=== PATIENT | female | born 1940 | race Caucasian/White ===

== ENCOUNTER 2016-09-19 09:12 | Inpatient (IN) ==
[2016-09-19] MEDS ORDERED: 0.9 % Sodium Chloride 1,000 ML IVC ONE (09:35)
[2016-09-19] MEDS ORDERED: Ondansetron 4 MG/2 ML VIAL IVP ONE (09:35)
--- NOTE | 2016-09-19 09:38 | Emergency Department Note ---
Disposition Clinical Impression: Cellulitis in diabetic foot Sepsis Qualifiers: Sepsis type: sepsis due to unspecified organism Qualified Code(s): A41.9 - Sepsis, unspecified organism Subcutaneous air Qualifiers: Encounter type: initial encounter Qualified Code(s): T79.7XXA - Traumatic subcutaneous emphysema, initial encounter Disposition: Admitted As Inpatient Condition: Serious Time of Disposition: 11:28 Syncope HPI - General Chief Complaint: ED Fall Stated Complaint: dizzy,fall Source: patient, family Limitations: no limitations Nursing Notes Reviewed: Yes Vital Signs Reviewed: Yes - History of Present Illness HPI Narrative: 76-year-old female complains of dizziness and falling over the past 3 days. This is an acute change patient has a history of independent living at [facility]. Patient usually gets around on her own just fine with a walker. Patient currently unable to support herself with a walker and has fallen 3 times over the past 30 hours. Patient fell and hit her face on the second fall. Patient family reports the patient was down on the ground before she got help for about 2 hours at 4 AM this morning. They also report the patient has a newly found diabetic ulcer on the heel of the left foot. Patient complains of pain in the left lower extremity in her foot. Patient has history of diabetes and hypertension. - Related Data Home Medications Medication Instructions Recorded Confirmed Acetaminophen [Tylenol Arthritis] 650 mg PO Q6H PRN 09/19/16 09/19/16 Aspirin 81 mg PO DAILY 09/19/16 09/19/16 Metformin HCl [Glucophage] 1,000 mg PO BID 09/19/16 09/19/16 Oxybutynin Chloride [Ditropan Xl] 5 mg PO DAILY 09/19/16 09/19/16 Pioglitazone HCl [Actos] 45 mg PO DAILY 09/19/16 09/19/16 Simvastatin [Zocor] 40 mg PO HS 09/19/16 09/19/16 Allergies Allergy/AdvReac Type Severity Reaction Status Date / Time Penicillins AdvReac Itching Verified 09/19/16 11:57 All systems ED: reviewed and negative except as stated. Constitutional: Reports: weakness. Denies: fever, chills Eyes: Denies: eye pain, eye discharge, vision change ENT ED: Denies: ear pain, throat pain, dental pain, congestion, dysphagia Cardiovascular: Reports: dyspnea on exertion. Denies: chest pain, palpitations , syncope Respiratory: Denies: cough, dyspnea, wheezes Gastrointestinal: Reports: nausea. Denies: abdominal pain, vomiting Genitourinary: Denies: urgency, dysuria Musculoskeletal: Denies: back pain, neck pain Integumentary: Reports: lesions (Single ulcer on the heel of the left foot). Denies: rash, abrasion Neurological: Reports: weakness, confusion. Denies: headache Psychiatric: Denies: anxiety, depression Endocrine: Denies: fatigue, heat or cold intolerance Past Medical History - Past Medical History Attestation: Yes The following information was validated with the patient. Medical history: Reports: diabetes, hypertension Psychiatric history: Reports: no psych history - Social History Smoking Status: Never smoker Smokeless Tobacco Status: No Alcohol use: Reports: none Drug use: Reports: none Physical Exam Vital Signs Temperature 98.3 F 09/19/16 09:16 Pulse Rate 108 09/19/16 09:16 Respiratory Rate 20 09/19/16 09:16 Blood Pressure 124/82 09/19/16 09:16 O2 Sat by Pulse Oximetry 96 09/19/16 09:16 Temperature 98.3 F 09/19/16 09:16 Pulse Rate 108 09/19/16 09:16 Respiratory Rate 20 09/19/16 09:16 Blood Pressure 124/82 09/19/16 09:16 O2 Sat by Pulse Oximetry 96 09/19/16 09:16 Oxygen Delivery Oxygen Delivery Room Air -General Appearance: Patient is a 76 -year-old female who is alert and oriented 3 and in no acute distress. Patient appears comfortable -Neurological exam: Cranial nerves II-12 intact, no focal deficits observed, strength equal 5/5 bilaterally in upper and lower extremities. Negative loss of sensation - Head Head exam: atraumatic, normocephalic, normal inspection - Eye Eye exam: Present: normal appearance, PERRL, EOMI, negative for scleral icterus negative for conjunctival pallor - ENT ENT exam: normal exam, normal oropharynx, mucous membranes moist - Neck Neck exam: Present: normal inspection, full ROM, trachea midline, negative JVD - Chest Chest inspection: Present: Patient has bilateral equal rise and fall of chest wall. Non-tender to palpation. - Respiratory Respiratory exam: Clear to auscultation bilaterally without wheezes rales or rhonchi Cardiovascular Cardiovascular exam: Present: regular rate, normal rhythm, normal heart sounds, without murmurs rubs or gallops. - Abdominal Exam Abdominal exam: Present: soft, nondistended, Non-Tender light and deep palpation in all quadrants. Bowel sounds normoactive throughout all 4 quadrants. Negative for hyper or hyperresonance. - Extremities Exam Extremities exam: Recent remainder discoid ulceration base of heel nonpurulent. Proximal extension of erythema lower half of left lower extremity. Pedal pulses intact and equal bilaterally upper and lower extremities - Back Exam Back exam: Present: normal inspection, full ROM. - Psychiatric Psychiatric exam: Present: normal affect, normal mood - Skin Skin exam: Present: Foot ulceration left lower extremity. Previously described - General Limitations: no limitations General appearance: alert, in no apparent distress Course Course Narrative: Patient seen and examined. Patient currently comfortable and does not appear toxic. She has GCS of 15. Imaging and labs ordered - Reevaluation(s) Reevaluation #1: Patient still comfortable patient states she is not in any pain. Time: 10:00 Reevaluation #2: Patient still comfortable doing well. Discussed patient results and that she will be going to surgery today for incision and debridement of her left lower extremity. Patient understands and agrees to treatment plan. Patient's sons were also previous on the plan at the wishes of the patient. They also understand and agreed to treatment plan. Time: 11:35 - Consultations Consultation #1: Dr. Adler sputum patient's condition. Recommends patient be admitted to the hospital and he plans to have patient go to surgery today. Time: 11:17 Consultation #2: Dr. Hemphill has accepted for admission. Time: 11:28 Vital Signs Temperature 98.3 F 09/19/16 09:16 Pulse Rate 108 09/19/16 09:16 Respiratory Rate 20 09/19/16 09:16 Blood Pressure 124/82 09/19/16 09:16 O2 Sat by Pulse Oximetry 96 09/19/16 09:16 Temperature 98.7 F 09/19/16 10:01 Pulse Rate 82 09/19/16 11:24 Respiratory Rate 18 09/19/16 12:43 Blood Pressure 114/93 09/19/16 12:43 O2 Sat by Pulse Oximetry 93 L 09/19/16 11:24 Oxygen Delivery Oxygen Delivery Room Air Syncope - [facility] Narrative Medical decision making narrative: Ms. Mendoza is a 76 -year-old female complains of dizziness and also the past 3 days with increased confusion and weakness. Patient has a new diabetic foot ulcer on the left heel that has not been treated. Today at presentation patient left lower extremity just below mid lower leg is erythematous concerning for Cellulitis of the left lower extremity possible sepsis. Patient is afebrile but has a tachycardia of 108 and a sinus tach. Respirations 20. X-ray the foot shows gas below the subcutaneous tissues. Patient's WBC shows 15.9. Patient has sepsis now and sepsis protocol been initiated. Patient has ESR greater than 130. Dr. Adler podiatry was consulted and recommends patient be admitted to the hospital and from there have hospitalist consult podiatry with the intention of taking patient to surgery today for I&D. Patient was started on meropenem and vancomycin. IV fluid boluses have been initiated to reach her minimum of 3333 mL. cultures the wound, and blood cultures drawn. MRI of the left lower extremity has been ordered. Dr. Hemphill has accepted patient for admission. - Lab Data Lab results reviewed: Yes I reviewed the patient's lab results. Lab results narrative: Short CBC 09/19/16 Range/Units 10:21 WBC 15.9 H (4.3-11.1) K/mcL Hgb 10.7 L (11.5-15.4) g/dL Hct 32.6 L (35.3-44.9) % Plt Count 259 (140-400) K/mcL Neutrophils # 13.4 H (1.6-8.9) K/mcL BMP 09/19/16 Range/Units 10:21 Sodium 135 L (136-145) mEq/L Potassium 3.7 (3.5-4.5) mEq/L Chloride 98 (98-109) mEq/L Carbon Dioxide 24 (19-29) mEq/L BUN 24 H (7-20) mg/dL Creatinine 0.81 (0.57-1.11) mg/dL Glucose 300 H (70-99) mg/dL Calcium 9.1 (8.6-10.8) mg/dL Cardiac Enzymes 09/19/16 Range/Units 10:21 Troponin I 0.02 (0-0.03) ng/mL Result diagrams: 09/19/16 10:21 09/19/16 10:21 Lab Results 09/19/16 09/19/16 09/19/16 Range/Units 09:25 10:21 10:21 WBC 15.9 H (4.3-11.1) K/mcL RBC 3.54 L (3.82-4.97) M/mcL Hgb 10.7 L (11.5-15.4) g/dL Hct 32.6 L (35.3-44.9) % MCV 92.1 (83.0-100.0) fL MCH 30.2 (28.0-33.3) pg MCHC 32.8 (31.6-35.5) g/dL RDW 17.6 H (11.5-14.5) % Plt Count 259 (140-400) K/mcL MPV 9.3 L (9.4-12.4) fL Immature Gran % 3.7 (0-4) % Seg Neutrophils % 84.3 % Lymphocytes % 3.1 % Monocytes % 8.8 % Eosinophils % 0.0 % Basophils % 0.1 % Neutrophils # 13.4 H (1.6-8.9) K/mcL Lymphocytes # 0.5 L (0.6-4.6) K/mcL Monocytes # 1.4 H (0.0-1.3) K/mcL Eosinophils # 0.0 (0.0-0.6) K/mcL Basophils # 0.0 (0.0-0.2) K/mcL Nucleated RBCs/100 WBC 0.1 H (0) /100 WBC ESR (0-15) mm/hr PT (9.4-12.1) Seconds INR APTT (26.0-36.0) Seconds Sodium 135 L (136-145) mEq/L Potassium 3.7 (3.5-4.5) mEq/L Chloride 98 (98-109) mEq/L Carbon Dioxide 24 (19-29) mEq/L BUN 24 H (7-20) mg/dL Creatinine 0.81 (0.57-1.11) mg/dL Est GFR ( Amer) > 60 (> 60) Est GFR (Non-Af Amer) > 60 (> 60) BUN/Creatinine Ratio 30 H (6-26) Glucose 300 H (70-99) mg/dL POC Glucose 277 H (58-89) Calculated Osmolality 295 (280-300) Lactic Acid (0.5-2.2) mmol/L Calcium 9.1 (8.6-10.8) mg/dL Phosphorus (2.3-4.7) mg/dL Magnesium (1.6-2.6) mg/dL Total Bilirubin (0.2-1.2) mg/dL Direct Bilirubin (0.0-0.5) mg/dL Indirect Bilirubin (0.0-1.2) mg/dL AST (5-34) Units/L ALT (0-55) Units/L Alkaline Phosphatase (38-126) Units/L Creatine Kinase (29-168) Units/L Troponin I (0-0.03) ng/mL Serum Total Protein (6.0-8.3) g/dL Albumin (3.5-5.0) g/dL Globulin (2.4-3.5) g/dL Albumin/Globulin Ratio (1.1-2.2) Urine Color (Yellow) Urine Clarity (Clear) Urine pH (5.0-8.0) pH Units Ur Specific [place] (1.010-1.025) Urine Protein (Neg-Trace) mg/dL Urine Glucose (UA) (Normal) mg/dL Urine Ketones (Negative) mg/dL Urine Blood (Negative) Urine Nitrite (Negative) Urine Bilirubin (Negative) Urine Urobilinogen (Normal) mg/dL Ur Leukocyte Esterase (Negative) Urine Microscopic RBC (0-3) per hpf Urine Microscopic WBC (0-3) per hpf Ur Squamous Epith Cells (None-Few) per lpf Ur Transition Epith Cell (None-Few) per hpf Ur Renal Epithelial Cell (None-Few) per hpf Urine Bacteria (None-Few) per hpf Hyaline Casts Urine Yeast 09/19/16 09/19/16 09/19/16 Range/Units 10:21 10:21 10:21 WBC (4.3-11.1) K/mcL RBC (3.82-4.97) M/mcL Hgb (11.5-15.4) g/dL Hct (35.3-44.9) % MCV (83.0-100.0) fL MCH (28.0-33.3) pg MCHC (31.6-35.5) g/dL RDW (11.5-14.5) % Plt Count (140-400) K/mcL MPV (9.4-12.4) fL Immature Gran % (0-4) % Seg Neutrophils % % Lymphocytes % % Monocytes % % Eosinophils % % Basophils % % Neutrophils # (1.6-8.9) K/mcL Lymphocytes # (0.6-4.6) K/mcL Monocytes # (0.0-1.3) K/mcL Eosinophils # (0.0-0.6) K/mcL Basophils # (0.0-0.2) K/mcL Nucleated RBCs/100 WBC (0) /100 WBC ESR >= 130 H (0-15) mm/hr PT (9.4-12.1) Seconds INR APTT (26.0-36.0) Seconds Sodium (136-145) mEq/L Potassium (3.5-4.5) mEq/L Chloride (98-109) mEq/L Carbon Dioxide (19-29) mEq/L BUN (7-20) mg/dL Creatinine (0.57-1.11) mg/dL Est GFR ( Amer) (> 60) Est GFR (Non-Af Amer) (> 60) BUN/Creatinine Ratio (6-26) Glucose (70-99) mg/dL POC Glucose (58-89) Calculated Osmolality (280-300) Lactic Acid (0.5-2.2) mmol/L Calcium (8.6-10.8) mg/dL Phosphorus (2.3-4.7) mg/dL Magnesium (1.6-2.6) mg/dL Total Bilirubin (0.2-1.2) mg/dL Direct Bilirubin (0.0-0.5) mg/dL Indirect Bilirubin (0.0-1.2) mg/dL AST (5-34) Units/L ALT (0-55) Units/L Alkaline Phosphatase (38-126) Units/L Creatine Kinase 217 H (29-168) Units/L Troponin I 0.02 (0-0.03) ng/mL Serum Total Protein (6.0-8.3) g/dL Albumin (3.5-5.0) g/dL Globulin (2.4-3.5) g/dL Albumin/Globulin Ratio (1.1-2.2) Urine Color (Yellow) Urine Clarity (Clear) Urine pH (5.0-8.0) pH Units Ur Specific [place] (1.010-1.025) Urine Protein (Neg-Trace) mg/dL Urine Glucose (UA) (Normal) mg/dL Urine Ketones (Negative) mg/dL Urine Blood (Negative) Urine Nitrite (Negative) Urine Bilirubin (Negative) Urine Urobilinogen (Normal) mg/dL Ur Leukocyte Esterase (Negative) Urine Microscopic RBC (0-3) per hpf Urine Microscopic WBC (0-3) per hpf Ur Squamous Epith Cells (None-Few) per lpf Ur Transition Epith Cell (None-Few) per hpf Ur Renal Epithelial Cell (None-Few) per hpf Urine Bacteria (None-Few) per hpf Hyaline Casts Urine Yeast 09/19/16 09/19/16 09/19/16 Range/Units 10:59 11:43 11:43 WBC (4.3-11.1) K/mcL RBC (3.82-4.97) M/mcL Hgb (11.5-15.4) g/dL Hct (35.3-44.9) % MCV (83.0-100.0) fL MCH (28.0-33.3) pg MCHC (31.6-35.5) g/dL RDW (11.5-14.5) % Plt Count (140-400) K/mcL MPV (9.4-12.4) fL Immature Gran % (0-4) % Seg Neutrophils % % Lymphocytes % % Monocytes % % Eosinophils % % Basophils % % Neutrophils # (1.6-8.9) K/mcL Lymphocytes # (0.6-4.6) K/mcL Monocytes # (0.0-1.3) K/mcL Eosinophils # (0.0-0.6) K/mcL Basophils # (0.0-0.2) K/mcL Nucleated RBCs/100 WBC (0) /100 WBC ESR (0-15) mm/hr PT 14.0 H (9.4-12.1) Seconds INR 1.3 APTT 27.3 (26.0-36.0) Seconds Sodium (136-145) mEq/L Potassium (3.5-4.5) mEq/L Chloride (98-109) mEq/L Carbon Dioxide (19-29) mEq/L BUN (7-20) mg/dL Creatinine (0.57-1.11) mg/dL Est GFR ( Amer) (> 60) Est GFR (Non-Af Amer) (> 60) BUN/Creatinine Ratio (6-26) Glucose (70-99) mg/dL POC Glucose (58-89) Calculated Osmolality (280-300) Lactic Acid (0.5-2.2) mmol/L Calcium (8.6-10.8) mg/dL Phosphorus 2.1 L (2.3-4.7) mg/dL Magnesium 1.5 L (1.6-2.6) mg/dL Total Bilirubin 0.9 (0.2-1.2) mg/dL Direct Bilirubin 0.5 (0.0-0.5) mg/dL Indirect Bilirubin 0.4 (0.0-1.2) mg/dL AST 21 (5-34) Units/L ALT 16 (0-55) Units/L Alkaline Phosphatase 78 (38-126) Units/L Creatine Kinase (29-168) Units/L Troponin I (0-0.03) ng/mL Serum Total Protein 6.5 (6.0-8.3) g/dL Albumin 2.4 L (3.5-5.0) g/dL Globulin 4.1 H (2.4-3.5) g/dL Albumin/Globulin Ratio 0.6 L (1.1-2.2) Urine Color Yellow (Yellow) Urine Clarity Turbid A (Clear) Urine pH 6.0 (5.0-8.0) pH Units Ur Specific [place] 1.018 (1.010-1.025) Urine Protein 100 H (Neg-Trace) mg/dL Urine Glucose (UA) 500 H (Normal) mg/dL Urine Ketones Negative (Negative) mg/dL Urine Blood Moderate H (Negative) Urine Nitrite Positive A (Negative) Urine Bilirubin Negative (Negative) Urine Urobilinogen Normal (Normal) mg/dL Ur Leukocyte Esterase Large H (Negative) Urine Microscopic RBC 3-5 H (0-3) per hpf Urine Microscopic WBC TNTC H (0-3) per hpf Ur Squamous Epith Cells Many H (None-Few) per lpf Ur Transition Epith Cell Few (None-Few) per hpf Ur Renal Epithelial Cell Few (None-Few) per hpf Urine Bacteria Many H (None-Few) per hpf Hyaline Casts Test Not Performed Urine Yeast Test Not Performed 09/19/16 Range/Units 11:43 WBC (4.3-11.1) K/mcL RBC (3.82-4.97) M/mcL Hgb (11.5-15.4) g/dL Hct (35.3-44.9) % MCV (83.0-100.0) fL MCH (28.0-33.3) pg MCHC (31.6-35.5) g/dL RDW (11.5-14.5) % Plt Count (140-400) K/mcL MPV (9.4-12.4) fL Immature Gran % (0-4) % Seg Neutrophils % % Lymphocytes % % Monocytes % % Eosinophils % % Basophils % % Neutrophils # (1.6-8.9) K/mcL Lymphocytes # (0.6-4.6) K/mcL Monocytes # (0.0-1.3) K/mcL Eosinophils # (0.0-0.6) K/mcL Basophils # (0.0-0.2) K/mcL Nucleated RBCs/100 WBC (0) /100 WBC ESR (0-15) mm/hr PT (9.4-12.1) Seconds INR APTT (26.0-36.0) Seconds Sodium (136-145) mEq/L Potassium (3.5-4.5) mEq/L Chloride (98-109) mEq/L Carbon Dioxide (19-29) mEq/L BUN (7-20) mg/dL Creatinine (0.57-1.11) mg/dL Est GFR ( Amer) (> 60) Est GFR (Non-Af Amer) (> 60) BUN/Creatinine Ratio (6-26) Glucose (70-99) mg/dL POC Glucose (58-89) Calculated Osmolality (280-300) Lactic Acid 2.4 H (0.5-2.2) mmol/L Calcium (8.6-10.8) mg/dL Phosphorus (2.3-4.7) mg/dL Magnesium (1.6-2.6) mg/dL Total Bilirubin (0.2-1.2) mg/dL Direct Bilirubin (0.0-0.5) mg/dL Indirect Bilirubin (0.0-1.2) mg/dL AST (5-34) Units/L ALT (0-55) Units/L Alkaline Phosphatase (38-126) Units/L Creatine Kinase (29-168) Units/L Troponin I (0-0.03) ng/mL Serum Total Protein (6.0-8.3) g/dL Albumin (3.5-5.0) g/dL Globulin (2.4-3.5) g/dL Albumin/Globulin Ratio (1.1-2.2) Urine Color (Yellow) Urine Clarity (Clear) Urine pH (5.0-8.0) pH Units Ur Specific [place] (1.010-1.025) Urine Protein (Neg-Trace) mg/dL Urine Glucose (UA) (Normal) mg/dL Urine Ketones (Negative) mg/dL Urine Blood (Negative) Urine Nitrite (Negative) Urine Bilirubin (Negative) Urine Urobilinogen (Normal) mg/dL Ur Leukocyte Esterase (Negative) Urine Microscopic RBC (0-3) per hpf Urine Microscopic WBC (0-3) per hpf Ur Squamous Epith Cells (None-Few) per lpf Ur Transition Epith Cell (None-Few) per hpf Ur Renal Epithelial Cell (None-Few) per hpf Urine Bacteria (None-Few) per hpf Hyaline Casts Urine Yeast - Radiology Data Radiology results reviewed: Yes I reviewed the patient's radiology results. Chest X-Ray 09/19/16 09:35 IMPRESSION: Cardiomegaly, increased. [id number] pulmonary vascular congestion, increased. D/ / Felix Schaeffer MD / Felix Schaeffer MD Interpreting Provider: Felix Schaeffer MD Ankle X-Ray 09/19/16 09:50 IMPRESSION: Subcutaneous gas plantar to the calcaneus. No evidence of osseous erosive/ destructive change or periostitis. D/ / Juan Will MD / Juan Will MD Interpreting Provider: Juan iWll MD Chest X-Ray 09/19/16 09:35 IMPRESSION: Cardiomegaly, increased. [id number] pulmonary vascular congestion, increased. D/ / Felix Schaeffer MD / Felix Schaeffer MD Interpreting Provider: Felix Schaeffer MD Head CT 09/19/16 09:35 IMPRESSION: No acute intracranial abnormality. D/ / Kahlil Gross MD / Kahlil Gross MD Interpreting Provider: Kahlil Gross MD Ankle X-Ray 09/19/16 09:50 IMPRESSION: Subcutaneous gas plantar to the calcaneus. No evidence of osseous erosive/ destructive change or periostitis. D/ / Juan Will MD / Juan Will MD Interpreting Provider: Juan Will MD - EKG Data EKG attestation: Yes I reviewed and interpreted this EKG. EKG results narrative: EKG taken 09/19/2016 at 0931 hours shows a ventricular rate of 10 5 bpm with this underlying sinus tachycardia. Mild ST depression in V3 when compared to previous EKG taken 06/14/2011 Critical Care Time Critical Care Time: Yes Total Critical Care Time: 30 Attestation: Critical care performed: Time is exclusive of separately billable procedures. Time includes: direct patient care, patient reassessment, coordination of patient care, interpretation of data (laboratory data, radiology data, and respiratory data), review of patient's medical records, medical consultation and documentation of patient care. Procedures included in critical care time: Procedures excluded from critical care time:
--- NOTE | 2016-09-19 10:15 | Emergency Department Note ---
START Narrative - START START: I examined this patient and my medical decision-making was reviewed with the SAFETY ANALYST/PA/Advanced Practice Nurse/Resident Physician. I agree with the documented findings, disposition and treatment plan as described except to the extent set forth below. Patient emergency department complaining of falls. Patient states 3 falls in the past day and a half. Denies injury. Complaining of pain in her left foot from an infection. States she is getting episodes of lightheadedness. Denies spinning sensation. She is unsure if this was making her follow-up it is because her legs are weak. No chest pain or shortness of breath. Exam shows no distress. She is obese. She has a wound to the heel of the left foot. He is a moderate amount of surrounding erythema. Plan. Cardiac workup head CT. Imaging of the sedimentation rate. Patient is from independent living. Unsafe for discharge back to there. Will admit. Patient was subcutaneous gas on her x-ray. Discussing with podiatry. MRI ordered. Cultures sent. Antibiotics started. Patient now meets sepsis criteria with elevated white blood cell count. Lactate and blood cultures ordered.
[2016-09-19 10:28] LABS: Basophils % 0.1 %; Hematocrit 32.6 % (35.3-44.9); Hemoglobin 10.7 g/dL (11.5-15.4); Immature Granulocytes % 3.7 % (0-4); Lymphocytes # 0.5 K/mcL (0.6-4.6); Lymphocytes % 3.1 %; Mean Corpuscular HGB Conc 32.8 g/dL (31.6-35.5); Mean Corpuscular Hemoglobin 30.2 pg (28.0-33.3); Mean Corpuscular Volume 92.1 fL (83.0-100.0); Mean Platelet Volume 9.3 fL (9.4-12.4); Monocytes # 1.4 K/mcL (0.0-1.3); Monocytes % 8.8 %; Neutrophils # 13.4 K/mcL (1.6-8.9); Nucleated Red Blood Cells 0.1 /100 WBC (0); Platelet Count 259 K/mcL (140-400); Red Blood Count 3.54 M/mcL (3.82-4.97); Red Cell Distribution Width 17.6 % (11.5-14.5); Segmented Neutrophils % 84.3 %
[2016-09-19 10:40] LABS: BUN/Creatinine Ratio 30 (6-26); Blood Urea Nitrogen 24 mg/dL (7-20); Calcium 9.1 mg/dL (8.6-10.8); Carbon Dioxide 24 mEq/L (19-29); Chloride 98 mEq/L (98-109); Glucose 300 mg/dL (70-99); Osmolality,Calculated 295 (280-300); Potassium 3.7 mEq/L (3.5-4.5); Sodium 135 mEq/L (136-145); eGFR For African Americans > 60 (> 60); eGFR For Non-African Americans > 60 (> 60)
[2016-09-19] MEDS ORDERED: Vancomycin 1,000 MG in D5% in Water 250 ML IV ONE (10:55)
[2016-09-19] MEDS ORDERED: Meropenem 1,000 MG in 0.9 % Sodium Chloride Mini Bag 100 ML IVPB STA (10:55)
[2016-09-19 11:10] LABS: Bilirubin,Urine Negative (Negative); Blood,Urine Moderate (Negative); Clarity,Urine Turbid (Clear); Color,Urine Yellow (Yellow); Glucose,Urine (UA) 500 mg/dL (Normal); Ketones,Urine Negative (Negative); Leukocyte Esterase,Urine Large (Negative); Nitrite,Urine Positive (Negative); Protein,Urine 100 mg/dL (Neg-Trace); Specific Gravity,Urine 1.018 (1.010-1.025); Urobilinogen,Urine Normal (Normal)
[2016-09-19 11:11] LABS: Bacteria,Urine Many per hpf (None-Few); Squamous Epithelial Cell,Urine Many per lpf (None-Few); WBC,Urine TNTC per hpf (0-3)
[2016-09-19 11:50] LABS: Renal Epithelial Cells,Urine Few per hpf (None-Few); Transitional Epi Cells,Urine Few per hpf (None-Few)
[2016-09-19] MEDS ORDERED: D5% in Water 1,000 ML IV PRN ×2 (11:52→20:11)
[2016-09-19] MEDS ORDERED: *HR* Dextrose 50 % in Water (Syg) 50 ML SYRINGE IVP PRN ×2 (11:52→20:11)
[2016-09-19] MEDS ORDERED: Dextrose Gel 15 GM PO PRN ×4 (11:52→20:11)
[2016-09-19] MEDS ORDERED: Ondansetron 4 MG/2 ML VIAL IVP PRN (11:52)
[2016-09-19] MEDS ORDERED: Naloxone 0.4 MG/ML INJ IVP PRN (11:52)
--- NOTE | 2016-09-19 11:58 | Internal Med History&Physical ---
Date of Encounter: 09/19/16 Time of Encounter: 11:56 Assessment and Plan (1) Sepsis Current visit: Yes Status: Acute Sepsis secondary to left necrotic heel ulcer with surrounding cellulitis, consider possible gangrene due to presence of gas, consider possible osteomyelitis (History of MRSA), possible UTI Dr. Adler has been consulted Continue meropenem and vancomycin, add clindamycin for possible gangrene Blood cultures and wound cultures The area will be demarcated to assess progression of the infection IV fluids and morphine for pain Check lactic acid MRI of the left ankle Send urine culture Qualifiers: Sepsis type: sepsis due to unspecified organism Qualified Code(s): A41.9 - Sepsis, unspecified organism (2) Hypertension Current visit: Yes Status: Acute Qualifiers: Hypertension type: essential hypertension Qualified Code(s): I10 - Essential (primary) hypertension (3) Morbid obesity Current visit: Yes Status: Acute Qualifiers: Obesity type: unspecified obesity type Qualified Code(s): E66.01 - Morbid ( severe) obesity due to excess calories (4) Cellulitis in diabetic foot Current visit: Yes Status: Acute (5) Neuropathy Current visit: Yes Status: Acute Stable (6) Diabetes Current visit: Yes Status: Acute Hold oral hypoglycemic agents Continue insulin sliding scale only as a patient will be nothing by mouth for possible surgery May resume diabetic diet if no surgery is scheduled later today The patient will receive Protonix for GI prophylaxis and subcutaneous heparin for DVT prophylaxis. Will be admitted as inpatient, she is expected to stay more than 2 midnights. She is a full code. Time spent on this admission 40 minutes. High risk for complications due to possible gangrene Qualifiers: Diabetes mellitus type: type 2 Diabetes mellitus complication status: with diabetic arthropathy Diabetes mellitus complication detail: with other arthropathy Diabetes mellitus fpc insulin use: without fpc use Qualified Code(s): E11.618 - Type 2 diabetes mellitus with other diabetic arthropathy Internal Medicine - H&P: HPI Chief complaint: weakness and left foot pain Admitted From: Emergency Dept History of present illness: Ms. Mendoza is a 76 year old female with a past medical history of diabetes type 2 not insulin-dependent, MRSA in his toes in the past, hypertension, comes to the emergency room complaining of 3 days of progressive weakness, she fell and hit her face. CT scan of the head does not show any intracranial hemorrhage. She has been more confused and complaining of progressive worsening pain on her left ankle and heel. There is an ulcer about 2 cm in diameter that has erythema in the surrounding area that has been getting worse. An x-ray of the ankle shows subcutaneous gas in the plantar area with no evidence of osteomyelitis. Dr. Adler was contacted by the emergency room physician and will see the patient on consult. Her white blood cell count is 15.9, ESR is 130, heart rate is 108. Also she denies any dysuria but her urinalysis shows positive nitrites and too many neutrophils to count. Feels very weak, denies any chest pain or other complaints. No sick contacts. Past Med Surg Social Fam HX - Past Medical History Medical history: diabetes (Not insulin-dependent), hypertension, other (MRSA cellulitis and toes infection, morbid obesity, neuropathy, hyperlipidemia) Psychiatric history: no psych history - Past Surgical History Surgical History: other (Cataract surgery, left foot hammertoes surgery, tubal ligation) - Social History Smoking Status: Never smoker Smokeless Tobacco Status: No Alcohol use: none Drug use: none - Additional Family History Additional family history: Father with diabetes Internal Medicine - H&P: Meds Acetaminophen [Tylenol Arthritis] 650 mg PO Q6H PRN 09/19/16 [History] Aspirin 81 mg PO DAILY 09/19/16 [History] Metformin HCl [Glucophage] 1,000 mg PO BID 09/19/16 [History] Oxybutynin Chloride [Ditropan Xl] 5 mg PO DAILY 09/19/16 [History] Pioglitazone HCl [Actos] 45 mg PO DAILY 09/19/16 [History] Simvastatin [Zocor] 40 mg PO HS 09/19/16 [History] Allergies Penicillins Adverse Reaction (Verified 09/19/16 11:57) Itching All Systems PM: A 10-system review of systems was performed and is negative for pertinent findings except as documented above in the HPI. Review of systems: History weak, denies any shortness of breath, no abdominal pain, no diarrhea. Other systems out offthe Ten reviewed were negative - Constitutional Vitals: Temp Pulse Resp BP Pulse Ox 98.7 F 82 18 114/93 93 L 09/19/16 10:01 09/19/16 11:24 09/19/16 11:24 09/19/16 11:24 09/19/16 11:24 General appearance: Present: A&O X 3, morbidly obese - Head Head exam: Present: atraumatic, normocephalic - Eye Eye exam: Present: PERRL, conjuntiva pink, sclera anicteric Pupils: Present: PERRL - Neck Neck exam general surgery: Present: supple, trachea midline. Absent: lymphadenopathy - Respiratory Respiratory exam: Present: decreased breath sounds, CTAB. Absent: accessory muscle use, rales, rhonchi, wheezes - Cardiovascular Cardiovascular exam: Present: RRR, +S1, +S2. Absent: diastolic murmur, gallop, rubs, systolic murmur - GI/Abdominal GI/Abdominal exam: Present: distended, normal bowel sounds, soft, no peritoneal signs. Absent: tenderness - Extremities Exam Extremities exam: Present: pedal edema, warm, radial pulses palpable and symetrical. Absent: calf tenderness, cyanotic Additional comments: There is a 2 cm necrotic rounded wound on the bottom of the heel surrounded by erythema, the airways warm and tender, possible crepitus on the lateral side of his the foot below the ankle with erythema right below the ankle as well Plans 1 pitting edema in both lower extremities - Neurological Exam Neurological exam: Present: CN II-XII intact, oriented X3, no focal deficits. Absent: pronater drift, facial droop, speech deficit - Skin Skin exam: Present: dry, intact Internal Med - H&P Results - Labs CBC & Chem 7: 09/19/16 10:21 09/19/16 10:21 Labs: Short CBC 09/19/16 Range/Units 10:21 WBC 15.9 H (4.3-11.1) K/mcL Hgb 10.7 L (11.5-15.4) g/dL Hct 32.6 L (35.3-44.9) % Plt Count 259 (140-400) K/mcL Neutrophils # 13.4 H (1.6-8.9) K/mcL BMP 09/19/16 10:21 Sodium 135 L Potassium 3.7 Chloride 98 Carbon Dioxide 24 BUN 24 H Creatinine 0.81 Glucose 300 H Calcium 9.1 Cardiac Enzymes 09/19/16 Range/Units 10:21 Troponin I 0.02 (0-0.03) ng/mL Urine 01/18/17 Range/Units 10:59 Urine Color Yellow (Yellow) Urine Clarity Turbid A (Clear) Urine pH 6.0 (5.0-8.0) pH Units Ur Specific [place] 1.018 (1.010-1.025) Urine Protein 100 H (Neg-Trace) mg/dL Urine Glucose (UA) 500 H (Normal) mg/dL - Impressions ITS Impressions Chest X-Ray 09/19/16 09:35 IMPRESSION: Cardiomegaly, increased. Dobg-gb-penfrgop pulmonary vascular congestion, increased. D/ / Felix Schaeffer MD / Felix Schaeffer MD Interpreting Provider: Felix Schaeffer MD Head CT 09/19/16 09:35 IMPRESSION: No acute intracranial abnormality. D/ / Kahlil Gross MD / Kahlil Gross MD Interpreting Provider: Kahlil Gross MD Ankle X-Ray 09/19/16 09:50 IMPRESSION: Subcutaneous gas plantar to the calcaneus. No evidence of osseous erosive/ destructive change or periostitis. D/ / Juan Will MD / Juan Will MD Interpreting Provider: Juan Will MD
[2016-09-19 11:59] LABS: INR 1.3
[2016-09-19] MEDS ORDERED: Vancomycin 1,750 MG in D5% in Water 250 ML IVPB SCH (12:00)
[2016-09-19] MEDS ORDERED: Insulin LISPRO 300 UNITS/3 ML VIAL SQ SCH (12:00)
[2016-09-19 12:02] LABS: Activated Partial Thrombo Time 27.3 Seconds (26.0-36.0)
[2016-09-19 12:07] LABS: Albumin 2.4 g/dL (3.5-5.0); Albumin/Globulin Ratio 0.6 (1.1-2.2); Bilirubin,Direct 0.5 mg/dL (0.0-0.5); Bilirubin,Indirect 0.4 mg/dL (0.0-1.2); Bilirubin,Total 0.9 mg/dL (0.2-1.2); Globulin 4.1 g/dL (2.4-3.5); Magnesium 1.5 mg/dL (1.6-2.6); Phosphorous 2.1 mg/dL (2.3-4.7); Total Protein 6.5 g/dL (6.0-8.3)
--- NOTE | 2016-09-19 14:04 | Electrocardiograph Report ---
[facility] Test Date: 2016-09-19 Pat Name: Chiquis Mendoza Department: 105 Room: [facility] [place] Gender: F Predatory Animal Hunter: : 1940 Requested By: Lynn See Order Number: [id number] Reading MD: Kian Tristan MD Measurements Intervals [place] Rate: 105 P: 59 MA: 130 QRS: 42 QRSD: 98 T: 10 QT: 337 QTc: 398 Interpretive Statements SINUS TACHYCARDIA BASELINE ARTIFACT Electronically Signed On 09-19-16 14:03:23 EST by Kian Tristan MD
--- NOTE | 2016-09-19 14:50 | Anesthesia Evaluation PreOp ---
Date of Encounter: 09/19/16 Time of Encounter: 14:48 - Past History Planned Operation: L foot I&D Cardiac History: HTN, Hyperlipidemia Pulmonary History: Denies Any Significant HX COUNTER DISH CARRIER History: Denies Any Significant HX Other Medical History: Diabetes Type II, Other (sepsis) Anesthesia History: No Prior Anesthetic Complications Alcohol Use: none Drug use: none Medications and Allergies Acetaminophen [Tylenol Arthritis] 650 mg PO Q6H PRN 09/19/16 [History] Aspirin 81 mg PO DAILY 09/19/16 [History] Metformin HCl [Glucophage] 1,000 mg PO BID 09/19/16 [History] Oxybutynin Chloride [Ditropan Xl] 5 mg PO DAILY 09/19/16 [History] Pioglitazone HCl [Actos] 45 mg PO DAILY 09/19/16 [History] Simvastatin [Zocor] 40 mg PO HS 09/19/16 [History] Allergies Penicillins Adverse Reaction (Verified 09/19/16 11:57) Itching - Meds/Allergy Pre-op Review Medications Reviewed: Yes Allergies Reviewed: Yes Beta Blockers on Current Med List: No Anesthesia Results - Labs 09/19/16 10:21 09/19/16 10:21 - Imaging EKG: report reviewed, image reviewed (ST; nonspecific ST&T wave abnormality) Anesthesia Exam Last Vital Signs Temp 98.7 F 09/19/16 10:01 Pulse 82 09/19/16 11:24 Resp 18 09/19/16 12:43 BP 114/93 09/19/16 12:43 Pulse Ox 93 L 09/19/16 11:24 Weight: 111 kg NPO (# of Hours): 8 hrs exactly - HEENT Pupil (Motor): Pupils equal, EOMI Mallampati: II Teeth: Edentulous Oral Opening: Greater than 3 - COUNTER DISH CARRIER LOC: Oriented - Cardiac Rhythm: Regular Murmur: None - Pulmonary Breath Sounds: bilateral Clear Respiratory Effort: Symmetrical Anesthesia Assess/Plan ASA Score: 3 Modified Lisa Scale for Level of Consciousness: Cooperative, oriented, and tranquil Anesthetic Plan: MAC Monitoring Plan: Standard Monitors Recovery Plan: PACU
[2016-09-19] MEDS ORDERED: Famotidine 20 MG/2 ML VIAL ONE (15:06)
[2016-09-19] MEDS ORDERED: *HR* Propofol 200 MG/20 ML VIAL IVP ONE (15:20)
[2016-09-19] MEDS ORDERED: Ondansetron 4 MG/2 ML VIAL ONE (15:20)
[2016-09-19] MEDS ORDERED: *HR* FentaNYL (PF) 100 MCG/2 ML VIAL ONE (15:20)
[2016-09-19] MEDS ORDERED: Lidocaine -MPF 2% 2 ML VIAL ONE (15:21)
[2016-09-19] MEDS ORDERED: Bupivacaine/Clonidine Syringe 1 EACH SYRINGE ONE (15:44)
[2016-09-19] MEDS ORDERED: Propofol 500 MG/50 ML INFUS..BTL ONE (15:55)
[2016-09-19] MEDS: Pantoprazole 40 MG VIAL IVP SCH (18:06)
[2016-09-19] MEDS: Clindamycin 600 MG/50 ML 600 MG/50 ML IV.SOLN IVPB SCH ×2 (18:07→18:08)
[2016-09-19] MEDS: 0.9 % Sodium Chloride 1,000 ML IVC SCH (19:02)
--- NOTE | 2016-09-19 19:47 | Podiatry Consult Note ---
Date of Encounter: 09/19/16 Time of Encounter: 13:44 Assessment and Plan (1) Cellulitis in diabetic foot Current visit: Yes Status: Acute Due to the subcutaneous gas in the heel immediate debridement was recommended to the patient and her family. The patient and her family agreed with the surgical intervention plan and they were discussed that we would remove any necrotic tissue and drain the abscess and gas.Patient was informed of the risks and complications of surgery. These may include but are not limited to the following; nerve damage, numbness, tingling, RSD/CRPS, loss of motor function, loss of toe, loss of limb, loss of life, ischemia, wound healing issues, infection, scarring, keloid formation, continued pain, arthritis, non-union, mal-union, prominent hardware, displaced hardware, reaction to hardware, the need to remove hardware, bruising, continued limp, the need for future surgery, over correction, under correction, chronic swelling, the need for physical therapy, stiffness of joints, ulceration, slow healing, wound dehiscence, reaction to implant, reaction to sutures. The patient was informed of the possible conservative treatments available which may include but are not limited to the following: Orthotics, bracing, non -weight bearing, physical therapy, padding, taping, steroid injections, NSAIDS, casting. The patient was given the option to seek a second opinion. It was explained that surgery is an art and not an exact science therefore results cannot be guaranteed. All the patients questions and concerns were addressed. Patient agrees to have the surgery despite the possible risks and complications. Absolutely no guarantees were given or implied. History of Present Illness Chief complaint: Left foot infection HPI: Ms. Mendoza is a 76 year old female who relates that she began having pain in her foot yesterday. She relates that it increased and she decided to present to the emergency department. Patient relates that overall she has a feeling of malaise and fatigue. Patient denies any other pedal complaints. Past Med Surg Social Fam HX - Past Medical History Medical history: diabetes, hypertension Psychiatric history: no psych history - Past Surgical History Surgical History: other (Cataract surgery, left foot hammertoes surgery, tubal ligation) - Social History Smoking Status: Never smoker Smokeless Tobacco Status: No Alcohol use: none Drug use: none Medications and Allergies Acetaminophen [Tylenol Arthritis] 650 mg PO Q6H PRN 09/19/16 [History] Aspirin 81 mg PO DAILY 09/19/16 [History] Metformin HCl [Glucophage] 1,000 mg PO BID 09/19/16 [History] Oxybutynin Chloride [Ditropan Xl] 5 mg PO DAILY 09/19/16 [History] Pioglitazone HCl [Actos] 45 mg PO DAILY 09/19/16 [History] Simvastatin [Zocor] 40 mg PO HS 09/19/16 [History] Allergies Penicillins Adverse Reaction (Verified 09/19/16 11:57) Itching All Systems Reviewed: A 10-system review of systems was performed and is negative for pertinent findings except as documented above in the HPI. Physical Exam - Constitutional Vitals: Temp Pulse Resp BP Pulse Ox 98.7 F 94 17 104/50 94 L 09/19/16 17:15 09/19/16 17:15 09/19/16 17:15 09/19/16 17:15 09/19/16 17:15 Exam: The plantar of the left foot has an area approximately 2.5 cm in diameter which is black and draining. Significant malodor is noted. Erythema is noted extending around the area of necrosis. Pedal pulses are difficult to palpate at this time due to the edema. Sensation to the lower extremities decreased consistent with peripheral neuropathy. There are no other open lesions, abrasions, or ulcerations noted. Radiographic exam demonstrates gas in the tissue. Results - Labs Result Diagrams: 09/19/16 10:21 09/19/16 10:21 Labs: Abnormal lab results WBC 15.9 K/mcL (4.3-11.1) H 09/19/16 10:21 RBC 3.54 M/mcL (3.82-4.97) L 09/19/16 10:21 Hgb 10.7 g/dL (11.5-15.4) L 09/19/16 10:21 Hct 32.6 % (35.3-44.9) L 09/19/16 10:21 RDW 17.6 % (11.5-14.5) H 09/19/16 10:21 MPV 9.3 fL (9.4-12.4) L 09/19/16 10:21 Neutrophils # 13.4 K/mcL (1.6-8.9) H 09/19/16 10:21 Lymphocytes # 0.5 K/mcL (0.6-4.6) L 09/19/16 10:21 Monocytes # 1.4 K/mcL (0.0-1.3) H 09/19/16 10:21 Nucleated RBCs/100 WBC 0.1 /100 WBC (0) H 09/19/16 10:21 ESR >= 130 mm/hr (0-15) H 09/19/16 10:21 PT 14.0 Seconds (9.4-12.1) H 09/19/16 11:43 Sodium 135 mEq/L (136-145) L 09/19/16 10:21 BUN 24 mg/dL (7-20) H 09/19/16 10:21 BUN/Creatinine Ratio 30 (6-26) H 09/19/16 10:21 Glucose 300 mg/dL (70-99) H 09/19/16 10:21 POC Glucose 277 (58-89) H 09/19/16 09:25 Phosphorus 2.1 mg/dL (2.3-4.7) L 09/19/16 11:43 Magnesium 1.5 mg/dL (1.6-2.6) L 09/19/16 11:43 Creatine Kinase 217 Units/L (29-168) H 09/19/16 10:21 Albumin 2.4 g/dL (3.5-5.0) L 09/19/16 11:43 Globulin 4.1 g/dL (2.4-3.5) H 09/19/16 11:43 Albumin/Globulin Ratio 0.6 (1.1-2.2) L 09/19/16 11:43 Urine Clarity Turbid (Clear) A 09/19/16 10:59 Urine Protein 100 mg/dL (Neg-Trace) H 09/19/16 10:59 Urine Glucose (UA) 500 mg/dL (Normal) H 09/19/16 10:59 Urine Blood Moderate (Negative) H 09/19/16 10:59 Urine Nitrite Positive (Negative) A 09/19/16 10:59 Ur Leukocyte Esterase Large (Negative) H 09/19/16 10:59 Urine Microscopic RBC 3-5 per hpf (0-3) H 09/19/16 10:59 Urine Microscopic WBC TNTC per hpf (0-3) H 09/19/16 10:59 Ur Squamous Epith Cells Many per lpf (None-Few) H 09/19/16 10:59 Urine Bacteria Many per hpf (None-Few) H 09/19/16 10:59 All other labs normal. Consult Discharge Plan - Plan Referrals: Shira Del Castillo MD [Primary Care Provider] -
--- NOTE | 2016-09-19 20:14 | Operative Note ---
Date of procedure: 09/19/16 Pre-op diagnosis: Gas in soft tissue left heel Post-op diagnosis: same Procedure: Irrigation and debridement with incision and drainage of left heel and bone biopsy. Implants: None Complications: None Anesthesia: ANASTASIA Surgeon: Michel Mansfield Estimated blood loss (cc): 5 Specimen: Cultures were obtained, tissue was biopsied, fragment of bone cultured Condition: stable Disposition: floor Procedure in Detail: Patient was transported to the operating room and placed in the supine position. Following anesthesia the foot was scrubbed prepped and draped in usual aseptic fashion. A timeout was performed. The plantar aspect of the left foot was inspected and noted to have a 2.5 cm area of necrotic tissue. Purulence was expressed and drainage. Significant malodor was noted. The necrotic tissue was sharply debrided and a 2.5 cm diameter area of tissue was debrided to the depth of the bone on the plantar aspect of the left heel. After the tissue was debrided a RPostonix debrider was utilized to remove any other nonviable necrotic tissue. After all of the nonviable and necrotic tissue was removed the calcaneus was noted to be palpable with a thin layer of periosteum covering it. The calcaneus was noted to be solid and showed no signs of osteomyelitis at this point. A small portion of superficial bone was biopsied and sent for cultures. The site was pulse irrigated. After adequate irrigation the decision was made to place a wound VAC. A wound VAC was placed to encourage granulation tissue and promote healing. The patient had minimal bleeding and may necessitate vascular studies. Patient will be readmitted to the floor and evaluated by a hospitalist. The patient will likely need 6 weeks of antibiotics intravenously and will need to remain nonweightbearing.
[2016-09-19] MEDS: Meropenem 1,000 MG in 0.9 % Sodium Chloride Mini Bag 100 ML IVPB SCH (20:53)
[2016-09-19] MEDS: Insulin LISPRO 300 UNITS/3 ML VIAL SQ SCH (21:05)
[2016-09-20] MEDS ORDERED: Vancomycin 2,000 MG in D5% in Water 500 ML IVPB ONE (01:00)
[2016-09-20] MEDS: Clindamycin 600 MG/50 ML 600 MG/50 ML IV.SOLN IVPB SCH ×3 (02:45→09:30)
[2016-09-20] MEDS: Meropenem 1,000 MG in 0.9 % Sodium Chloride Mini Bag 100 ML IVPB SCH (04:39)
[2016-09-20 06:19] LABS: Basophils % 0.2 %; Eosinophils # 0.1 K/mcL (0.0-0.6); Hematocrit 28.9 % (35.3-44.9); Hemoglobin 9.6 g/dL (11.5-15.4); Immature Granulocytes % 2.1 % (0-4); Lymphocytes # 0.7 K/mcL (0.6-4.6); Lymphocytes % 5.7 %; Mean Corpuscular HGB Conc 33.2 g/dL (31.6-35.5); Mean Corpuscular Hemoglobin 30.6 pg (28.0-33.3); Mean Platelet Volume 9.2 fL (9.4-12.4); Monocytes # 0.9 K/mcL (0.0-1.3); Monocytes % 7.7 %; Neutrophils # 9.6 K/mcL (1.6-8.9); Nucleated Red Blood Cells 0.2 /100 WBC (0); Platelet Count 237 K/mcL (140-400); Red Blood Count 3.14 M/mcL (3.82-4.97); Red Cell Distribution Width 17.6 % (11.5-14.5); Segmented Neutrophils % 83.3 %
[2016-09-20 06:28] LABS: BUN/Creatinine Ratio 29 (6-26); Blood Urea Nitrogen 18 mg/dL (7-20); Calcium 8.2 mg/dL (8.6-10.8); Carbon Dioxide 26 mEq/L (19-29); Chloride 103 mEq/L (98-109); Glucose 210 mg/dL (70-99); Osmolality,Calculated 292 (280-300); Potassium 3.7 mEq/L (3.5-4.5); Sodium 137 mEq/L (136-145); eGFR For African Americans > 60 (> 60); eGFR For Non-African Americans > 60 (> 60)
--- NOTE | 2016-09-20 08:45 | Internal Med Progress Note ---
Date of Encounter: 09/20/16 Time of Encounter: 08:42 - Assessment and plan (1) Sepsis Current Visit: Yes Status: Acute Assessment and plan: Sepsis secondary to left necrotic heel ulcer with surrounding cellulitis, MRI ankle s/o findings with diffuse suncutaneous edema compatible with cellulitis vs lymphedema, early osteomyelitis could not be excluded, however as per the operating note, No signs of osteomyelitis after the debridement. Will follow podiatry recommendation. we will stop meropenem and clindamycin, will continue vancomycin and Zosyn until the cultures come back.will follow bone biopsy results and blood cx results for further de- escalation of the antibiotics, had one temp spike of 100.2 yesterday. IV fluids and morphine for pain., Qualifiers: Sepsis type: sepsis due to unspecified organism Qualified Code(s): A41.9 - Sepsis, unspecified organism (2) Cellulitis in diabetic foot Current Visit: Yes Status: Acute Assessment and plan: s/p irrigation and debridement of the left heel ulcer iwth bone biopsy with dr. choi. will follow posiatry rec for wound care . continue IV antibiotics (3) Diabetes Current Visit: Yes Status: Acute Assessment and plan: ll continue the lispro sliding scale for now. monitor accucjecks. Qualifiers: Diabetes mellitus type: type 2 Diabetes mellitus complication status: with diabetic arthropathy Diabetes mellitus complication detail: with other arthropathy Diabetes mellitus halfway insulin use: without terminal worker use Qualified Code(s): E11.618 - Type 2 diabetes mellitus with other diabetic arthropathy (4) Hypertension Current Visit: Yes Status: Acute Qualifiers: Hypertension type: essential hypertension Qualified Code(s): I10 - Essential (primary) hypertension (5) Morbid obesity Current Visit: Yes Status: Acute Qualifiers: Obesity type: unspecified obesity type Qualified Code(s): E66.01 - Morbid ( severe) obesity due to excess calories (6) UTI (urinary tract infection) Current Visit: Yes Status: Acute Assessment and plan: UA shows positive LE and nitrite however she has no symptoms. will not treat asymptomatic bacteriuria. Qualifiers: Urinary tract infection type: site unspecified Hematuria presence: without hematuria Qualified Code(s): N39.0 - Urinary tract infection, site not specified - Time Spent With Patient 25 - 35 minutes - Subjective Interval history: patient seen at the bedside, denies any complains other than mild pain on the heel of the left heel. denies nay burning micturition, or any urinary symptoms. s/p Irrigation and debridement with incision and drainage of left heel and bone biopsy on 09/19. being followed by podiatry. - Constitutional Vitals: Temp Pulse Resp BP Pulse Ox 98 F 97 16 104/59 95 09/20/16 06:38 09/20/16 06:38 09/20/16 06:38 09/20/16 06:38 09/20/16 06:38 General appearance: Present: A&O X 3, morbidly obese Exam: neck- supple chest- b/l clear, no added sounds CVS-s1 and s2, no mr//g abd-soft, non tender, bs are present ext- no edema, left foot wrapped in gauze. Internal Medicine: Result - Labs CBC & Chem 7: 09/20/16 05:46 09/20/16 05:46 Labs: Short CBC 09/20/16 Range/Units 05:46 WBC 11.5 H (4.3-11.1) K/mcL Hgb 9.6 L (11.5-15.4) g/dL Hct 28.9 L (35.3-44.9) % Plt Count 237 (140-400) K/mcL Neutrophils # 9.6 H (1.6-8.9) K/mcL BMP 09/20/16 05:46 Sodium 137 Potassium 3.7 Chloride 103 Carbon Dioxide 26 BUN 18 Creatinine 0.63 Glucose 210 H Calcium 8.2 L - ABG Interpretation ABG results: PT/INR, D-dimer PT 14.0 Seconds (9.4-12.1) H 09/19/16 11:43 - VTE Documentation of Mechanical Device: Intermittent pneumatic compression device Consult Discharge Plan - Plan Referrals: Shira Del Castillo MD [Primary Care Provider] -
[2016-09-20] MEDS: Insulin LISPRO 300 UNITS/3 ML VIAL SQ SCH ×4 (09:30→22:07)
[2016-09-20] MEDS: Aspirin 81 MG TAB.CHEW PO SCH (09:31)
[2016-09-20] MEDS: Pantoprazole 40 MG VIAL IVP SCH (09:31)
[2016-09-20] MEDS: Albuterol 2.5 MG/3 ML NEBULIZER IH PRN ×2 (11:52→16:35)
--- NOTE | 2016-09-20 13:14 | Podiatry Progress Note ---
Date of Encounter: 09/20/16 Time of Encounter: 12:00 - Assessment and Plan (1) Cellulitis in diabetic foot Current Visit: Yes Status: Acute Wound vac intact and running without issue vascular preliminary to LLE: DOROTHY completed Right 1.36, waveform appeared to show mild disease Left 0.93, waveform appeared to show moderate disease Will consult vascular for further evaluation prior to discharge Patient will likely need 6 weeks outpatient IV antibiotic therapy Non weight bearing to LLE at this time Call with any questions or concerns Please call office with any issues with surgical site or wound vac Subjective Interval history: Patient underwent Irrigation and debridement with incision and drainage of left heel and bone biopsy yesterday per . On arrival patient is resting comfortably. States pain is minimal at this time and she rested well throughout the night. Dressing and wound vac is intact and running without issue. Scant amount of bloody drainage noted to VAC. Family at bedside. Patient states that she went to vascular lab this morning. Patient denies any chills, n/v or flu like symptoms overnight. Tmax 100.4. Patient denies any calf pain Objective - Vital Signs Vital Signs: Vital Signs Temp Pulse Resp BP Pulse Ox 09/20/16 11:53 18 98 09/20/16 10:38 98.3 F 94 16 108/56 95 09/20/16 06:38 98 F 97 16 104/59 95 09/20/16 04:54 98.2 F 92 15 107/67 96 09/20/16 00:36 100.2 F H 102 15 104/50 92 L 09/19/16 21:11 98.8 F 102 15 102/48 94 L 09/19/16 17:15 98.7 F 94 17 104/50 94 L 09/19/16 16:45 98.5 F 92 18 113/76 95 Intake and Output 09/19/16 09/20/16 09/20/16 23:59 07:59 15:59 Intake Total 150 / 150 550 / 550 150 / 150 Output Total 7 / 7 Balance 143 / 143 550 / 550 150 / 150 Intake: IV Fluids 150 / 150 550 / 550 150 / 150 Cleocin 600 MG/50 ML 600 50 / 50 50 / 50 50 / 50 mg In 50 ml @ 50 mls/hr IVPB Q8HR [facility] Rx#: [id number] Merrem 1,000 MG In 0.9 % 100 / 100 100 / 100 Sodium Chloride (Mini-Bag +) 100 ML @ 200 mls/hr IVPB Q8H [facility] Rx#: [id number] Vancocin 2,000 MG In 500 / 500 Dextrose 5% 500 ML @ 250 mls/hr IVPB ONCE ONE Rx#: [id number] Output: Estimated Blood Loss 5 / 5 Wound Drainage 2 / 2 Left Heel 2 / 2 Other: # Voids 1 1 Blood Glucose* 195 194 - Exam Exam: General Examination: CONSTITUTIONAL: Alert, oriented, in no acute distress, non-toxic. EXTREMITIES: CFT 3 seconds all toes, slight pallor noted to LLE. Edema + 1 and pedal pulses diminished. Faint to palpation. Cellulitis marked to LLE per nurse SKIN: Skin with decreased turgor, decreased subcutaneous tissue, skin thin and shiny with trophic changes associated with comorbidities as described in history.. NEUROLOGIC: Intact sensation to moderate touch Movement of toes intact . Wound vac and dressing intact- will leave wound vac intact at this time. Scant amount of bloody drainage to canister. - Lab Result Diagrams: 09/20/16 05:46 09/20/16 05:46 Labs: Abnormal lab results WBC 11.5 K/mcL (4.3-11.1) H 09/20/16 05:46 RBC 3.14 M/mcL (3.82-4.97) L 09/20/16 05:46 Hgb 9.6 g/dL (11.5-15.4) L 09/20/16 05:46 Hct 28.9 % (35.3-44.9) L 09/20/16 05:46 RDW 17.6 % (11.5-14.5) H 09/20/16 05:46 MPV 9.2 fL (9.4-12.4) L 09/20/16 05:46 Neutrophils # 9.6 K/mcL (1.6-8.9) H 09/20/16 05:46 Nucleated RBCs/100 WBC 0.2 /100 WBC (0) H 09/20/16 05:46 ESR >= 130 mm/hr (0-15) H 09/19/16 10:21 PT 14.0 Seconds (9.4-12.1) H 09/19/16 11:43 BUN/Creatinine Ratio 29 (6-26) H 09/20/16 05:46 Glucose 210 mg/dL (70-99) H 09/20/16 05:46 POC Glucose 195 (58-89) H 09/19/16 20:59 Calcium 8.2 mg/dL (8.6-10.8) L 09/20/16 05:46 Phosphorus 2.1 mg/dL (2.3-4.7) L 09/19/16 11:43 Magnesium 1.5 mg/dL (1.6-2.6) L 09/19/16 11:43 Creatine Kinase 217 Units/L (29-168) H 09/19/16 10:21 Albumin 2.4 g/dL (3.5-5.0) L 09/19/16 11:43 Globulin 4.1 g/dL (2.4-3.5) H 09/19/16 11:43 Albumin/Globulin Ratio 0.6 (1.1-2.2) L 09/19/16 11:43 Urine Clarity Turbid (Clear) A 09/19/16 10:59 Urine Protein 100 mg/dL (Neg-Trace) H 09/19/16 10:59 Urine Glucose (UA) 500 mg/dL (Normal) H 09/19/16 10:59 Urine Blood Moderate (Negative) H 09/19/16 10:59 Urine Nitrite Positive (Negative) A 09/19/16 10:59 Ur Leukocyte Esterase Large (Negative) H 09/19/16 10:59 Urine Microscopic RBC 3-5 per hpf (0-3) H 09/19/16 10:59 Urine Microscopic WBC TNTC per hpf (0-3) H 09/19/16 10:59 Ur Squamous Epith Cells Many per lpf (None-Few) H 09/19/16 10:59 Urine Bacteria Many per hpf (None-Few) H 09/19/16 10:59 - VTE Documentation of Mechanical Device: Intermittent pneumatic compression device Consult Discharge Plan - Plan Referrals: Shira Del Castillo MD [Primary Care Provider] -
[2016-09-20] MEDS: Vancomycin 1,000 MG in D5% in Water 250 ML IVPB SCH (13:23)
[2016-09-20] MEDS: 0.9 % Sodium Chloride 1,000 ML IVC SCH (14:22)
[2016-09-20] MEDS: *HR* Morphine 2 MG/ML SYRINGE IVP PRN (14:29)
[2016-09-20] MEDS ORDERED: Lidocaine -MPF 1% 5 ML AMPUL INFILT ONE (15:28)
[2016-09-20] MEDS: Piperacillin/Tazobactam 3.375 GM in D5% in Water (Mini-Bag+) 100 ML IVPB SCH (15:39)
[2016-09-20] MEDS: Acetaminophen 325 MG TABLET PO PRN (22:07)
[2016-09-21] MEDS: Piperacillin/Tazobactam 3.375 GM in D5% in Water (Mini-Bag+) 100 ML IVPB SCH ×2 (00:42→08:23)
[2016-09-21] MEDS: Vancomycin 1,000 MG in D5% in Water 250 ML IVPB SCH ×2 (00:43→13:48)
[2016-09-21] MEDS: Albuterol 2.5 MG/3 ML NEBULIZER IH PRN (04:51)
[2016-09-21] MEDS: 0.9 % Sodium Chloride 1,000 ML IVC SCH (07:00)
[2016-09-21 08:12] LABS: Basophils # 0.1 K/mcL (0.0-0.2); Basophils % 0.6 %; Eosinophils # 0.3 K/mcL (0.0-0.6); Eosinophils % 2.4 %; Hematocrit 30.6 % (35.3-44.9); Hemoglobin 9.7 g/dL (11.5-15.4); Immature Granulocytes % 2.9 % (0-4); Lymphocytes # 0.7 K/mcL (0.6-4.6); Lymphocytes % 5.9 %; Mean Corpuscular HGB Conc 31.7 g/dL (31.6-35.5); Mean Corpuscular Hemoglobin 29.6 pg (28.0-33.3); Mean Corpuscular Volume 93.3 fL (83.0-100.0); Mean Platelet Volume 9.2 fL (9.4-12.4); Monocytes # 0.9 K/mcL (0.0-1.3); Monocytes % 7.6 %; Neutrophils # 9.2 K/mcL (1.6-8.9); Nucleated Red Blood Cells 0.2 /100 WBC (0); Platelet Count 247 K/mcL (140-400); Red Blood Count 3.28 M/mcL (3.82-4.97); Red Cell Distribution Width 18.1 % (11.5-14.5); Segmented Neutrophils % 80.6 %
[2016-09-21 08:22] LABS: BUN/Creatinine Ratio 25 (6-26); Blood Urea Nitrogen 17 mg/dL (7-20); Calcium 8.4 mg/dL (8.6-10.8); Carbon Dioxide 27 mEq/L (19-29); Chloride 103 mEq/L (98-109); Glucose 237 mg/dL (70-99); Osmolality,Calculated 295 (280-300); Potassium 3.9 mEq/L (3.5-4.5); Sodium 138 mEq/L (136-145); eGFR For African Americans > 60 (> 60); eGFR For Non-African Americans > 60 (> 60)
[2016-09-21] MEDS: Pantoprazole 40 MG VIAL IVP SCH (08:24)
[2016-09-21] MEDS: Aspirin 81 MG TAB.CHEW PO SCH (08:24)
[2016-09-21] MEDS: Insulin LISPRO 300 UNITS/3 ML VIAL SQ SCH ×4 (08:24→21:29)
[2016-09-21] MEDS: *HR* Morphine 2 MG/ML SYRINGE IVP PRN ×2 (13:49→18:43)
--- NOTE | 2016-09-21 16:59 | Podiatry Progress Note ---
Date of Encounter: 09/21/16 Time of Encounter: 12:00 - Assessment and Plan (1) Cellulitis in diabetic foot Current Visit: Yes Status: Acute Wound vac intact and running without issue DOROTHY completed Right 1.36, waveform appeared to show mild disease Left 0.93, waveform appeared to show moderate disease Continue antibiotic therapy and medical to manage sepsis Patient will likely need 6 weeks outpatient IV antibiotic therapy awaiting final surgical culture results Non weight bearing to LLE at this time please change wound VAC Saturday call with any issues Call with any questions or concerns Please call office with any issues with surgical site or wound vac Subjective Interval history: Patient underwent Irrigation and debridement with incision and drainage of left heel and bone biopsy per . On arrival patient is resting comfortably. States she has pain to heel at this time. Dressing and wound vac is intact and running without issue. Scant amount of bloody drainage noted to VAC. Family at bedside. Patients vascular DOROTHY positive for mild disease. Covered findings with patient. Patient denies any chills, n/v or flu like symptoms overnight. Patient continues to have low grade temperatures. Patient denies any calf pain Objective - Vital Signs Vital Signs: Vital Signs Temp Pulse Resp BP Pulse Ox 09/21/16 15:10 98.1 F 85 16 117/65 100 09/21/16 11:04 98 F 90 18 111/67 97 09/21/16 07:06 98.2 F 87 16 116/66 100 09/21/16 04:51 15 96 09/21/16 04:46 98.6 F 92 15 130/66 94 L 09/21/16 01:05 99.8 F H 95 17 126/61 96 09/20/16 21:46 99.4 F 100 15 128/65 99 Intake and Output 09/21/16 09/21/16 09/21/16 07:59 15:59 23:59 Intake Total 1350 / 1350 950 / 950 Output Total 5 / 5 50 / 50 Balance 1345 / 1345 950 / 950 -50 / -50 Intake: IV Fluids 1350 / 1350 350 / 350 0.9 % Sodium Chloride 1, 1000 / 1000 000 ML @ 75 mls/hr IVC . [id number] ART Rx#: [id number] Zosyn 3.375 GM In 100 / 100 100 / 100 Dextrose 5% (Minibag+) 100 ML 100 ML @ 25 mls/hr IVPB Q8HR ART Rx#: [id number] Vancocin 1,000 MG In 250 / 250 250 / 250 Dextrose 5% 250 ML @ 167 mls/hr IVPB Q12H ART Rx#: [id number] Oral 600 / 600 Output: Wound Drainage 5 / 5 50 / 50 Left Heel 5 / 5 50 / 50 Other: Meal Lunch Percent of Meal Consumed 90% # Voids 2 1 Blood Glucose* 204 258 280 - Exam Exam: General Examination: CONSTITUTIONAL: Alert, oriented, in no acute distress, non-toxic. EXTREMITIES: CFT 3 seconds all toes. Edema +2 and pedal pulses palpable. SKIN: Skin with decreased turgor, decreased subcutaneous tissue, skin thin and shiny with trophic changes associated with comorbidities as described in history.. NEUROLOGIC: Intact sensation to moderate touch no calf pain with palpation wound VAC intact running without issue erythema noted to be continued around the debridement site. Does not extend past previous markings. Mild edema present. Mild warmth continues. Patient complains of pain to heel of foot (posterior aspect) upon arrival heel will is not elevated off bed. no skin breakdown noted at this time. wound VAC running, scant amount of bloody drainage noted to canister. No signs of necrosis. No extension of cellulitis at this time. - Lab Result Diagrams: 09/21/16 08:00 09/21/16 08:00 Labs: Abnormal lab results WBC 11.5 K/mcL (4.3-11.1) H 09/21/16 08:00 RBC 3.28 M/mcL (3.82-4.97) L 09/21/16 08:00 Hgb 9.7 g/dL (11.5-15.4) L 09/21/16 08:00 Hct 30.6 % (35.3-44.9) L 09/21/16 08:00 RDW 18.1 % (11.5-14.5) H 09/21/16 08:00 MPV 9.2 fL (9.4-12.4) L 09/21/16 08:00 Neutrophils # 9.2 K/mcL (1.6-8.9) H 09/21/16 08:00 Nucleated RBCs/100 WBC 0.2 /100 WBC (0) H 09/21/16 08:00 ESR >= 130 mm/hr (0-15) H 09/19/16 10:21 PT 14.0 Seconds (9.4-12.1) H 09/19/16 11:43 Glucose 237 mg/dL (70-99) H 09/21/16 08:00 POC Glucose 280 (58-89) H 09/21/16 16:24 Calcium 8.4 mg/dL (8.6-10.8) L 09/21/16 08:00 Phosphorus 2.1 mg/dL (2.3-4.7) L 09/19/16 11:43 Magnesium 1.5 mg/dL (1.6-2.6) L 09/19/16 11:43 Creatine Kinase 217 Units/L (29-168) H 09/19/16 10:21 Albumin 2.4 g/dL (3.5-5.0) L 09/19/16 11:43 Globulin 4.1 g/dL (2.4-3.5) H 09/19/16 11:43 Albumin/Globulin Ratio 0.6 (1.1-2.2) L 09/19/16 11:43 Urine Clarity Turbid (Clear) A 09/19/16 10:59 Urine Protein 100 mg/dL (Neg-Trace) H 09/19/16 10:59 Urine Glucose (UA) 500 mg/dL (Normal) H 09/19/16 10:59 Urine Blood Moderate (Negative) H 09/19/16 10:59 Urine Nitrite Positive (Negative) A 09/19/16 10:59 Ur Leukocyte Esterase Large (Negative) H 09/19/16 10:59 Urine Microscopic RBC 3-5 per hpf (0-3) H 09/19/16 10:59 Urine Microscopic WBC TNTC per hpf (0-3) H 09/19/16 10:59 Ur Squamous Epith Cells Many per lpf (None-Few) H 09/19/16 10:59 Urine Bacteria Many per hpf (None-Few) H 09/19/16 10:59 Microbiology, Last 48 Hours 09/19/16 18:54 Wound Culture - Preliminary Left Foot Gram Positive Cocci - VTE Documentation of Mechanical Device: Intermittent pneumatic compression device Consult Discharge Plan - Plan Referrals: Shira Del Castillo MD [Primary Care Provider] -
--- NOTE | 2016-09-21 17:14 | Internal Med Progress Note ---
Date of Encounter: 09/21/16 Time of Encounter: 17:09 - Assessment and plan (1) Sepsis Current Visit: Yes Status: Acute Assessment and plan: Sepsis secondary to left necrotic heel ulcer with surrounding cellulitis, MRI ankle s/o findings with diffuse suncutaneous edema compatible with cellulitis vs lymphedema, early osteomyelitis could not be excluded, however as per the operating note, No signs of osteomyelitis after the debridement. wound care as per podiatry. will continue vancomycin and stop zosyn, will follow bone biopsy results , wound cx growing staph aureus that is pansensitive. will need powerglide for IV antibiotics, will continue to follow wound cx results. remains afebrile. Qualifiers: Sepsis type: sepsis due to unspecified organism Qualified Code(s): A41.9 - Sepsis, unspecified organism (2) Cellulitis in diabetic foot Current Visit: Yes Status: Acute Assessment and plan: s/p irrigation and debridement of the left heel ulcer iwth bone biopsy with dr. choi. will follow posiatry rec for wound care . continue IV antibiotics (3) Diabetes Current Visit: Yes Status: Acute Assessment and plan: ll continue the lispro sliding scale for now. monitor accucjecks. Qualifiers: Diabetes mellitus type: type 2 Diabetes mellitus complication status: with diabetic arthropathy Diabetes mellitus complication detail: with other arthropathy Diabetes mellitus mcc insulin use: without mcc use Qualified Code(s): E11.618 - Type 2 diabetes mellitus with other diabetic arthropathy (4) Hypertension Current Visit: Yes Status: Acute Qualifiers: Hypertension type: essential hypertension Qualified Code(s): I10 - Essential (primary) hypertension (5) Morbid obesity Current Visit: Yes Status: Acute Qualifiers: Obesity type: unspecified obesity type Qualified Code(s): E66.01 - Morbid ( severe) obesity due to excess calories (6) UTI (urinary tract infection) Current Visit: Yes Status: Acute Assessment and plan: UA shows positive LE and nitrite however she has no symptoms. will not treat asymptomatic bacteriuria. Qualifiers: Urinary tract infection type: site unspecified Hematuria presence: without hematuria Qualified Code(s): N39.0 - Urinary tract infection, site not specified - Time Spent With Patient 25 - 35 minutes - Subjective Interval history: patient seen at the bedside,complains other than mild pain on the heel of the left heel. denies any burning micturition, or any urinary symptoms. s/p Irrigation and debridement with incision and drainage of left heel and bone biopsy on 09/19. being followed by podiatry, awaiting one biopsy cx results. one cx result grew staph aureus which is clifford sensitive. will stop zosyn, continue vanco until final cx results from both samples - Constitutional Vitals: Temp Pulse Resp BP Pulse Ox 98.1 F 85 16 117/65 100 09/21/16 15:10 09/21/16 15:10 09/21/16 15:10 09/21/16 15:10 09/21/16 15:10 General appearance: Present: A&O X 3, morbidly obese Exam: neck- supple chest- b/l clear, no added sounds CVS-s1 and s2, no m/r/g abd-soft, non tender, bs are present 'ext- no edema, left foot wrapped in gauze placed in wound vac. Internal Medicine: Result - Labs CBC & Chem 7: 09/21/16 08:00 09/21/16 08:00 Labs: Short CBC 09/21/16 Range/Units 08:00 WBC 11.5 H (4.3-11.1) K/mcL Hgb 9.7 L (11.5-15.4) g/dL Hct 30.6 L (35.3-44.9) % Plt Count 247 (140-400) K/mcL Neutrophils # 9.2 H (1.6-8.9) K/mcL BMP 09/21/16 08:00 Sodium 138 Potassium 3.9 Chloride 103 Carbon Dioxide 27 BUN 17 Creatinine 0.69 Glucose 237 H Calcium 8.4 L - ABG Interpretation ABG results: PT/INR, D-dimer PT 14.0 Seconds (9.4-12.1) H 09/19/16 11:43 - VTE Documentation of Mechanical Device: Intermittent pneumatic compression device Consult Discharge Plan - Plan Referrals: Shira Del Castillo MD [Primary Care Provider] -
--- NOTE | 2016-09-21 18:15 | Arterial Study Report ---
LE Arterial Physiologic Study Patient Name:Chiquis Mendoza Order Number:[id number] Procedure Date:09/20/2016 Date:2Age:76 yrs Gender:Female Lt BP:119 / mmHg Rt.BP:120 / mmHgHeart Rate: Location:[facility] Room #: 3NE21 [employer] Installation Supervisor:Emmy Epstein RDCS, RVT Referring MD:Michel Mansfield DPM program engineer:Shira Del Castillo MD Reading MD:Alfa Brenner MD Primary Indications:Vascular Insufficiency Risk Factors Yes/No Hypertension Yes Diabetes Yes Hypercholesterolemia Yes Hx of TIA No Hx of CVA No Hx of CAD/PTCA No Previous Vascular Surgery No Impressions: The right DOROTHY is normal. Right DOROTHY 0.93. The left DOROTHY is consistent with mild disease. Left DOROTHY 0.81. Recommendations: Risk factor reduction. Further evaluation recommended if clinically indicated. Follow-up exam in 1 year. After imaging the patient returned to their room. Test completed on 09/20/2016 at 8:14:52 am. Findings LE Arterial Physiologic Exam: PVR: Right: The PVR waveforms are mildly diminished in the right ankle. Left: The PVR waveforms are moderately diminished in the left ankle. Prior Study: No prior study available for comparison. Segmental Pressures Side Location Pressure Index Result Right Posterior Tibial 163 1.36 Right Dorsalis Pedis 141 1.18 Left Posterior Tibial 111 0.93 Left Dorsalis Pedis 97 0.81 Ankle Brachial Index Right Systolic Diastolic DOROTHY Brachial 120 1.36 Dorsalis Pedis 141 1.18 Posterior Tibial 163 1.36 Left Systolic Diastolic DOROTHY Brachial 119 8.16 Dorsalis Pedis 979 8.16 Posterior Tibial 111 0.93 Updated by Alfa Brenner MD on 09/21/2016 6:10:46 PM with Status of Final electronically signed on 09/21/2016 6:10:56 PM with status of Final
[2016-09-21] MEDS: Nystatin POWDER 30 GM BOTTLE TP SCH (21:31)
[2016-09-21] MEDS: Acetaminophen 325 MG TABLET PO PRN (21:36)
[2016-09-22] MEDS: Vancomycin 1,000 MG in D5% in Water 250 ML IVPB SCH (02:02)
[2016-09-22] MEDS: *HR* Morphine 2 MG/ML SYRINGE IVP PRN ×2 (02:34→11:14)
[2016-09-22 05:22] LABS: Basophils # 0.1 K/mcL (0.0-0.2); Basophils % 0.5 %; Eosinophils # 0.3 K/mcL (0.0-0.6); Eosinophils % 2.6 %; Hematocrit 29.5 % (35.3-44.9); Hemoglobin 9.5 g/dL (11.5-15.4); Immature Granulocytes % 3.4 % (0-4); Lymphocytes % 8.1 %; Mean Corpuscular HGB Conc 32.2 g/dL (31.6-35.5); Mean Corpuscular Volume 93.1 fL (83.0-100.0); Mean Platelet Volume 9.4 fL (9.4-12.4); Monocytes # 1.1 K/mcL (0.0-1.3); Monocytes % 8.6 %; Neutrophils # 9.6 K/mcL (1.6-8.9); Nucleated Red Blood Cells 0.2 /100 WBC (0); Platelet Count 251 K/mcL (140-400); Red Blood Count 3.17 M/mcL (3.82-4.97); Red Cell Distribution Width 18.4 % (11.5-14.5); Segmented Neutrophils % 76.8 %
[2016-09-22 05:37] LABS: BUN/Creatinine Ratio 23 (6-26); Blood Urea Nitrogen 15 mg/dL (7-20); Calcium 8.5 mg/dL (8.6-10.8); Carbon Dioxide 27 mEq/L (19-29); Chloride 104 mEq/L (98-109); Glucose 237 mg/dL (70-99); Osmolality,Calculated 297 (280-300); Potassium 4.3 mEq/L (3.5-4.5); Sodium 139 mEq/L (136-145); eGFR For African Americans > 60 (> 60); eGFR For Non-African Americans > 60 (> 60)
[2016-09-22] MEDS: Insulin LISPRO 300 UNITS/3 ML VIAL SQ SCH ×4 (09:26→21:28)
[2016-09-22] MEDS: Aspirin 81 MG TAB.CHEW PO SCH (09:27)
[2016-09-22] MEDS: Nystatin POWDER 30 GM BOTTLE TP SCH ×2 (09:27→21:27)
[2016-09-22] MEDS: Pantoprazole 40 MG VIAL IVP SCH (09:27)
[2016-09-22] MEDS: Albuterol 2.5 MG/3 ML NEBULIZER IH PRN ×2 (09:39→15:00)
[2016-09-22] MEDS: 0.9 % Sodium Chloride 1,000 ML IVC SCH (14:17)
[2016-09-22] MEDS: Clindamycin 600 MG/50 ML 600 MG/50 ML IV.SOLN IVPB SCH ×2 (14:17→23:50)
[2016-09-22] MEDS: *HR* OxyCODONE Immed Rel 5 MG TABLET PO PRN ×2 (14:18→21:27)
--- NOTE | 2016-09-22 15:57 | Internal Med Progress Note ---
Date of Encounter: 09/22/16 Time of Encounter: 15:55 - Assessment and plan (1) Sepsis Current Visit: Yes Status: Acute Assessment and plan: Sepsis secondary to left necrotic heel ulcer with surrounding cellulitis, MRI ankle s/o findings with diffuse suncutaneous edema compatible with cellulitis vs lymphedema, early osteomyelitis could not be excluded, however as per the operating note, No signs of osteomyelitis after the debridement. wound care as per podiatry. has been started on clindamycin, wound culture positive for staph aureus. Reassessed by podiatry today, New Abscess, Plan for Repeat ?debridement Tomorrow Qualifiers: Sepsis type: sepsis due to unspecified organism Qualified Code(s): A41.9 - Sepsis, unspecified organism (2) Cellulitis in diabetic foot Current Visit: Yes Status: Acute Assessment and plan: s/p irrigation and debridement of the left heel ulcer iwth bone biopsy with dr. choi. plan as above (3) Diabetes Current Visit: Yes Status: Acute Assessment and plan: ll continue the lispro sliding scale for now. monitor accucjecks. Qualifiers: Diabetes mellitus type: type 2 Diabetes mellitus complication detail: with other arthropathy Diabetes mellitus termite renewal inspector insulin use: without group home use Qualified Code(s): E11.618 - Type 2 diabetes mellitus with other diabetic arthropathy (4) Hypertension Current Visit: Yes Status: Acute Qualifiers: Hypertension type: essential hypertension Qualified Code(s): I10 - Essential (primary) hypertension (5) Morbid obesity Current Visit: Yes Status: Acute Qualifiers: Obesity type: unspecified obesity type Qualified Code(s): E66.01 - Morbid ( severe) obesity due to excess calories (6) UTI (urinary tract infection) Current Visit: Yes Status: Acute Assessment and plan: UA shows positive LE and nitrite however she has no symptoms. will not treat asymptomatic bacteriuria. Qualifiers: Urinary tract infection type: site unspecified Hematuria presence: without hematuria Qualified Code(s): N39.0 - Urinary tract infection, site not specified - Time Spent With Patient 25 - 35 minutes - Subjective Interval history: patient seen at the bedside,complains mild pain on the heel of the left heel. denies any burning micturition, or any urinary symptoms. s/p Irrigation and debridement with incision and drainage of left heel and bone biopsy on 09/19. being followed by podiatry, cx shows staph aureus, started on clindamycin. - Constitutional Vitals: Temp Pulse Resp BP Pulse Ox 98.8 F 87 16 122/69 99 09/22/16 15:08 09/22/16 15:08 09/22/16 15:08 09/22/16 15:08 09/22/16 15:08 General appearance: Present: A&O X 3, morbidly obese Exam: neck- supple chest- b/l clear, no added sounds CVS-s1 and s2, no m/r/g abd-soft, non tender, bs are present 'ext- no edema, left foot wrapped in gauze placed in wound vac. Internal Medicine: Result - Labs CBC & Chem 7: 09/22/16 05:10 09/22/16 05:10 Labs: Short CBC 09/22/16 Range/Units 05:10 WBC 12.5 H (4.3-11.1) K/mcL Hgb 9.5 L (11.5-15.4) g/dL Hct 29.5 L (35.3-44.9) % Plt Count 251 (140-400) K/mcL Neutrophils # 9.6 H (1.6-8.9) K/mcL BMP 09/22/16 05:10 Sodium 139 Potassium 4.3 Chloride 104 Carbon Dioxide 27 BUN 15 Creatinine 0.65 Glucose 237 H Calcium 8.5 L - ABG Interpretation ABG results: PT/INR, D-dimer PT 14.0 Seconds (9.4-12.1) H 09/19/16 11:43 - VTE Documentation of Mechanical Device: Intermittent pneumatic compression device Consult Discharge Plan - Plan Referrals: Shira Del Castillo MD [Primary Care Provider] -
[2016-09-22] MEDS: Neosporin OINT 15 GM TUBE TP SCH (21:28)
[2016-09-23] MEDS: *HR* OxyCODONE Immed Rel 5 MG TABLET PO PRN (03:28)
[2016-09-23] MEDS: 0.9 % Sodium Chloride 1,000 ML IVC SCH ×3 (05:42→05:45)
[2016-09-23] MEDS ORDERED: *HR* FentaNYL (PF) 100 MCG/2 ML VIAL ONE (07:17)
[2016-09-23] MEDS ORDERED: Lidocaine -MPF 4% 5 ML AMPUL ONE (07:17)
[2016-09-23] MEDS ORDERED: Lidocaine -MPF 2% 2 ML VIAL ONE ×2 (07:17→07:18)
[2016-09-23] MEDS ORDERED: *HR* Propofol 200 MG/20 ML VIAL IVP ONE (07:18)
[2016-09-23] MEDS ORDERED: *HR* Midazolam HCl 2 MG/2 ML VIAL ONE (07:18)
[2016-09-23] MEDS: Albuterol 2.5 MG/3 ML NEBULIZER IH PRN (07:30)
[2016-09-23] MEDS ORDERED: Bupivacaine/Clonidine Syringe 1 EACH SYRINGE ONE (07:34)
--- NOTE | 2016-09-23 07:43 | Anesthesia Evaluation PreOp ---
Date of Encounter: 09/23/16 Time of Encounter: 07:41 - Past History Planned Operation: I&D L-foot/necrotic heel Cardiac History: HTN, Hyperlipidemia (maintained on Simvastatin) Pulmonary History: Denies Any Significant HX (NEVER smoker) THEATRE MANAGER History: Other (Diabetic Neuropathy) Other Medical History: Diabetes Type II (maintained on Metformin, Actos), Other (Sepsis this hospital admission [admitted 09/19/16] re: necrotic heel ulcer w/ surrounding cellulitis/gas gangrene/osteomyelitis - s/p Meropenem, Vancomycin, Clindamyin. Bladder spasms/stress incontinence maitnaned on Oxybutnin. Super MO w/BMI = 51.2) Anesthesia History: No Prior Anesthetic Complications, Past Anesthesia (I&D L foot 09/19/16, L-foot hammer toe surgery, BTL, Cataract surgery) Alcohol Use: none Drug use: none Medications and Allergies Acetaminophen [Tylenol Arthritis] 650 mg PO Q6H PRN 09/19/16 [History] Aspirin 81 mg PO DAILY 09/19/16 [History] Metformin HCl [Glucophage] 1,000 mg PO BID 09/19/16 [History] Oxybutynin Chloride [Ditropan Xl] 5 mg PO DAILY 09/19/16 [History] Pioglitazone HCl [Actos] 45 mg PO DAILY 09/19/16 [History] Simvastatin [Zocor] 40 mg PO HS 09/19/16 [History] Allergies Penicillins Adverse Reaction (Verified 09/19/16 11:57) Itching - Meds/Allergy Pre-op Review Medications Reviewed: Yes Allergies Reviewed: Yes Beta Blockers on Current Med List: No Anesthesia Results - Labs 09/22/16 05:10 09/22/16 05:10 Laboratory Tests 09/19/16 09/22/16 09/23/16 11:43 05:10 07:33 PT 14.0 H INR 1.3 APTT 27.3 Est GFR (Non-Af Amer) > 60 POC Glucose 215 H Laboratory Results Impressions Chest X-Ray 09/19/16 09:35 IMPRESSION: Cardiomegaly, increased. [id number] pulmonary vascular congestion, increased. D/ / Felix Schaeffer MD / Felix Schaeffer MD Interpreting Provider: Felix Schaeffer MD Head CT 09/19/16 09:35 IMPRESSION: No acute intracranial abnormality. D/ / Kahlil Gross MD / Kahlil Gross MD Interpreting Provider: Kahlil Gross MD Ankle X-Ray 09/19/16 09:50 IMPRESSION: Subcutaneous gas plantar to the calcaneus. No evidence of osseous erosive/ destructive change or periostitis. D/ / Juan Will MD / Juan Will MD Interpreting Provider: Juan Will MD Ankle MRI 09/19/16 10:57 IMPRESSION: 1. Skin ulceration plantar to the posterior calcaneus with underlying foci of soft tissue gas. Severe diffuse subcutaneous edema compatible with cellulitis versus lymphedema. No drainable fluid collateral or sinus tract. 2. Mild bone marrow edema in the plantar aspect of the posterior calcaneus within a plantar fascia origin enthesophyte with relatively normal T1 signal. Findings are compatible with reactive noninfectious osteitis although early osteomyelitis is not entirely excluded. 3. Fluid signal replacement of the sinus tarsi fat plug. 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 4. Cardoza's neuropathy. 5. Mild tibiotalar, subtalar, and midfoot degenerative changes. 6. Mild Achilles tendinosis. D/ / Johnny Matson MD / Johnny Matson MD Interpreting Provider: Johnny Matson MD - Imaging EKG: image reviewed (105bpm STach, nonspecific ST&T wave abnormality) Anesthesia Exam Vital Signs Temp Pulse Resp BP Pulse Ox 09/23/16 03:31 98.9 F 91 18 136/68 96 09/22/16 23:55 98.7 F 86 16 116/54 97 09/22/16 20:14 98.6 F 92 16 120/46 93 L 09/22/16 15:08 98.8 F 87 16 122/69 99 09/22/16 11:03 98.5 F 93 16 118/51 98 Intake and Output 09/22/16 09/22/16 09/23/16 15:59 23:59 07:59 Intake Total 240 / 240 50 / 50 1050 / 1050 Output Total 0 / 0 Balance 240 / 240 50 / 50 1050 / 1050 Intake: IV Fluids 50 / 50 1050 / 1050 0.9 % Sodium Chloride 1, 1000 / 1000 000 ML @ 75 mls/hr IVC . [id number] ART Rx#: [id number] Cleocin 600 MG/50 ML 600 50 / 50 50 / 50 mg In 50 ml @ 50 mls/hr IVPB Q8HR ART Rx#: [id number] Oral 240 / 240 Output: Wound Drainage 0 / 0 Left Heel 0 / 0 Other: Meal Breakfast Percent of Meal Consumed 100% # Urine Diapers 2 1 1 Blood Glucose* 245 223 - HEENT Pupil (Motor): Pupils equal, EOMI Mallampati: III Teeth: Edentulous Oral Opening: Greater than 3 - THEATRE MANAGER LOC: Oriented THEATRE MANAGER Motor: Normal RUE, Normal LUE, Normal RLE, Normal LLE, Normal Face THEATRE MANAGER Sensory: Normal: RUE, LUE, RLE, LLE, Face - Cardiac Rhythm: Regular Murmur: None - Pulmonary Breath Sounds: bilateral Clear (s/p Albuterol treatment for audible wheezes upon arrival to HR#1) Respiratory Effort: Symmetrical Anesthesia Assess/Plan ASA Score: 3 (Super MO, DM, HTN, Neuropathy, Sepsis) Modified [place] Scale for Level of Consciousness: Cooperative, oriented, and tranquil Anesthetic Plan: General, MAC (MAC performed successfully on 09/19/16) Monitoring Plan: Standard Monitors Recovery Plan: PACU Anes Supervising Prov Stmt: PT seen/evaluated, R&B Discussed, questions answered and consent obtained. Praneeth Baird MD
[2016-09-23] MEDS ORDERED: Acetaminophen IV 1,000 MG/100 ML INFUS..BTL ONE (08:04)
[2016-09-23] MEDS: Clindamycin 600 MG/50 ML 600 MG/50 ML IV.SOLN IVPB SCH ×3 (08:05→15:24)
--- NOTE | 2016-09-23 08:09 | Podiatry Progress Note ---
Date of Encounter: 09/22/16 Time of Encounter: 08:05 - Assessment and Plan (1) Cellulitis in diabetic foot Current Visit: Yes Status: Acute At this time patient was instructed that there seems to be a new abscess or additional purulence requiring another washout of her heel. I instructed her that we would need to do another incision and drainage due to either recurrent infection or new infection. The patient was agreeable. Patient was informed of the risks and complications of surgery. These may include but are not limited to the following; nerve damage, numbness, tingling, RSD/CRPS, loss of motor function, loss of toe, loss of limb, loss of life, ischemia, wound healing issues, infection, scarring, keloid formation, continued pain, arthritis, non-union, mal-union, prominent hardware, displaced hardware, reaction to hardware, the need to remove hardware, bruising, continued limp, the need for future surgery, over correction, under correction, chronic swelling , the need for physical therapy, stiffness of joints, ulceration, slow healing, wound dehiscence, reaction to implant, reaction to sutures. The patient was informed of the possible conservative treatments available which may include but are not limited to the following: Orthotics, bracing, non -weight bearing, physical therapy, padding, taping, steroid injections, NSAIDS, casting. The patient was given the option to seek a second opinion. It was explained that surgery is an art and not an exact science therefore results cannot be guaranteed. All the patients questions and concerns were addressed. Patient agrees to have the surgery despite the possible risks and complications. Absolutely no guarantees were given or implied. Subjective Principal diagnosis: infection foot Interval history: Patient was seen today at bedside and relates continued pain. Patient relates that pain began to increase this morning and yesterday evening. Patient denies any other pedal complaints. Objective - Vital Signs Vital Signs: Vital Signs Temp Pulse Resp BP Pulse Ox 09/23/16 03:31 98.9 F 91 18 136/68 96 09/22/16 23:55 98.7 F 86 16 116/54 97 09/22/16 20:14 98.6 F 92 16 120/46 93 L 09/22/16 15:08 98.8 F 87 16 122/69 99 09/22/16 11:03 98.5 F 93 16 118/51 98 Intake and Output 0109/23/16 09/23/16 23:59 07:59 15:59 Intake Total 50 / 50 1050 / 1050 Balance 50 / 50 1050 / 1050 Intake: IV Fluids 50 / 50 1050 / 1050 0.9 % Sodium Chloride 1, 1000 / 1000 000 ML @ 75 mls/hr IVC . [id number] ART Rx#: [id number] Cleocin 600 MG/50 ML 600 50 / 50 50 / 50 mg In 50 ml @ 50 mls/hr IVPB Q8HR ART Rx#: [id number] Other: # Urine Diapers 1 1 Blood Glucose* 223 - Exam Exam: The wound VAC is intact. Decreased erythema from prior exam. Patient is able dorsiflex and plantarflex digits. There is a new palpable abscess on the medial aspect of the left heel. - Lab Result Diagrams: 09/22/16 05:10 09/22/16 05:10 Labs: Abnormal lab results WBC 12.5 K/mcL (4.3-11.1) H 09/22/16 05:10 RBC 3.17 M/mcL (3.82-4.97) L 09/22/16 05:10 Hgb 9.5 g/dL (11.5-15.4) L 09/22/16 05:10 Hct 29.5 % (35.3-44.9) L 09/22/16 05:10 RDW 18.4 % (11.5-14.5) H 09/22/16 05:10 Neutrophils # 9.6 K/mcL (1.6-8.9) H 09/22/16 05:10 Nucleated RBCs/100 WBC 0.2 /100 WBC (0) H 09/22/16 05:10 ESR >= 130 mm/hr (0-15) H 09/19/16 10:21 PT 14.0 Seconds (9.4-12.1) H 09/19/16 11:43 Glucose 237 mg/dL (70-99) H 09/22/16 05:10 POC Glucose 215 (58-89) H 09/23/16 07:33 Calcium 8.5 mg/dL (8.6-10.8) L 09/22/16 05:10 Phosphorus 2.1 mg/dL (2.3-4.7) L 09/19/16 11:43 Magnesium 1.5 mg/dL (1.6-2.6) L 09/19/16 11:43 Creatine Kinase 217 Units/L (29-168) H 09/19/16 10:21 Albumin 2.4 g/dL (3.5-5.0) L 09/19/16 11:43 Globulin 4.1 g/dL (2.4-3.5) H 09/19/16 11:43 Albumin/Globulin Ratio 0.6 (1.1-2.2) L 09/19/16 11:43 Urine Clarity Turbid (Clear) A 09/19/16 10:59 Urine Protein 100 mg/dL (Neg-Trace) H 09/19/16 10:59 Urine Glucose (UA) 500 mg/dL (Normal) H 09/19/16 10:59 Urine Blood Moderate (Negative) H 09/19/16 10:59 Urine Nitrite Positive (Negative) A 09/19/16 10:59 Ur Leukocyte Esterase Large (Negative) H 09/19/16 10:59 Urine Microscopic RBC 3-5 per hpf (0-3) H 09/19/16 10:59 Urine Microscopic WBC TNTC per hpf (0-3) H 09/19/16 10:59 Ur Squamous Epith Cells Many per lpf (None-Few) H 09/19/16 10:59 Urine Bacteria Many per hpf (None-Few) H 09/19/16 10:59 Microbiology, Last 48 Hours 09/19/16 18:54 Anaerobic Culture - Preliminary Left Foot At this time, no anaerobic growth is present. The culture will be finalized after 5 days of incubation. 09/19/16 18:54 Wound Culture - Final Left Foot Staphylococcus aureus - VTE Documentation of Mechanical Device: Intermittent pneumatic compression device Consult Discharge Plan - Plan Referrals: Shira Del Castillo MD [Primary Care Provider] -
[2016-09-23] MEDS ORDERED: Clindamycin 600 MG/50 ML 600 MG/50 ML IV.SOLN IVPB ONE (08:10)
[2016-09-23] MEDS ORDERED: Propofol 500 MG/50 ML INFUS..BTL ONE (08:13)
[2016-09-23] MEDS ORDERED: Ketamine *HR* 500 MG/10 ML MDV ONE (08:15)
[2016-09-23] MEDS ORDERED: Lidocaine 1% 20 ML MDV ONE (08:44)
[2016-09-23] MEDS: Insulin LISPRO 300 UNITS/3 ML VIAL SQ SCH ×4 (11:08→22:59)
[2016-09-23] MEDS: Neosporin OINT 15 GM TUBE TP SCH ×2 (11:18→22:37)
[2016-09-23] MEDS: Nystatin POWDER 30 GM BOTTLE TP SCH ×2 (11:19→22:38)
[2016-09-23 11:33] LABS: Basophils # 0.1 K/mcL (0.0-0.2); Basophils % 0.7 %; Eosinophils # 0.2 K/mcL (0.0-0.6); Eosinophils % 1.9 %; Hematocrit 30.2 % (35.3-44.9); Hemoglobin 9.6 g/dL (11.5-15.4); Immature Granulocytes % 6.2 % (0-4); Lymphocytes # 0.7 K/mcL (0.6-4.6); Mean Corpuscular HGB Conc 31.8 g/dL (31.6-35.5); Mean Corpuscular Hemoglobin 29.9 pg (28.0-33.3); Mean Corpuscular Volume 94.1 fL (83.0-100.0); Mean Platelet Volume 9.1 fL (9.4-12.4); Monocytes # 0.9 K/mcL (0.0-1.3); Monocytes % 8.3 %; Neutrophils # 7.8 K/mcL (1.6-8.9); Nucleated Red Blood Cells 0.3 /100 WBC (0); Platelet Count 267 K/mcL (140-400); Red Blood Count 3.21 M/mcL (3.82-4.97); Red Cell Distribution Width 18.7 % (11.5-14.5); Segmented Neutrophils % 75.9 %
[2016-09-23 11:46] LABS: BUN/Creatinine Ratio 25 (6-26); Blood Urea Nitrogen 17 mg/dL (7-20); Calcium 8.6 mg/dL (8.6-10.8); Carbon Dioxide 25 mEq/L (19-29); Chloride 103 mEq/L (98-109); Glucose 251 mg/dL (70-99); Osmolality,Calculated 296 (280-300); Potassium 4.8 mEq/L (3.5-4.5); Sodium 138 mEq/L (136-145); eGFR For African Americans > 60 (> 60); eGFR For Non-African Americans > 60 (> 60)
[2016-09-23 11:48] LABS: Platelet Estimate Normal (Normal)
--- NOTE | 2016-09-23 12:45 | Internal Med Progress Note ---
Date of Encounter: 09/23/16 Time of Encounter: 12:41 - Assessment and plan (1) Sepsis Current Visit: Yes Status: Acute Assessment and plan: Sepsis secondary to left necrotic heel ulcer with surrounding cellulitis, MRI ankle s/o findings with diffuse suncutaneous edema compatible with cellulitis vs lymphedema, early osteomyelitis could not be excluded. s/p debridement, noted new abscess yesterday, underwent repeat I and D with Dr. Mansfield today. wound care as per podiatry. has been started on clindamycin, wound culture positive for staph aureus. repeat wound cx have been sent. remains afebrile, leucocytosis has improved, will not change the antibiotics unless new growth in repeat blood cx. Qualifiers: Sepsis type: sepsis due to unspecified organism Qualified Code(s): A41.9 - Sepsis, unspecified organism (2) Cellulitis in diabetic foot Current Visit: Yes Status: Acute Assessment and plan: s/p repeat irrigation and debridement of the left heel ulcer with dr. mansfield. plan as above (3) Diabetes Current Visit: Yes Status: Acute Qualifiers: Diabetes mellitus type: type 2 Diabetes mellitus complication detail: with other arthropathy Diabetes mellitus meterman insulin use: without meterman use Qualified Code(s): E11.618 - Type 2 diabetes mellitus with other diabetic arthropathy (4) Hypertension Current Visit: Yes Status: Acute Qualifiers: Hypertension type: essential hypertension Qualified Code(s): I10 - Essential (primary) hypertension (5) Morbid obesity Current Visit: Yes Status: Acute Qualifiers: Obesity type: unspecified obesity type Qualified Code(s): E66.01 - Morbid ( severe) obesity due to excess calories (6) UTI (urinary tract infection) Current Visit: Yes Status: Acute Qualifiers: Urinary tract infection type: site unspecified Hematuria presence: without hematuria Qualified Code(s): N39.0 - Urinary tract infection, site not specified - Subjective Interval history: patient seen at the bedside,complains mild pain on the heel of the left heel. denies any burning micturition, or any urinary symptoms. s/p repeat Irrigation and debridement with incision and drainage of left heel for new abscess. new cx have been sent. remains afebrile. being followed by podiatry, cx shows staph aureus, started on clindamycin. - Constitutional Vitals: Temp Pulse Resp BP Pulse Ox 98.3 F 82 16 124/53 96 09/23/16 09:26 09/23/16 09:26 09/23/16 09:26 09/23/16 09:26 09/23/16 09:26 General appearance: Present: A&O X 3, morbidly obese Exam: neck- supple chest- b/l clear, no added sounds CVS-s1 and s2, no m/r/g abd-soft, non tender, bs are present 'ext- no edema, left foot wrapped in gauze placed in wound vac. Internal Medicine: Result - Labs CBC & Chem 7: 09/23/16 11:30 09/23/16 11:30 Labs: Short CBC 09/23/16 Range/Units 11:30 WBC 10.3 (4.3-11.1) K/mcL Hgb 9.6 L (11.5-15.4) g/dL Hct 30.2 L (35.3-44.9) % Plt Count 267 (140-400) K/mcL Neutrophils # 7.8 (1.6-8.9) K/mcL BMP 09/23/16 11:30 Sodium 138 Potassium 4.8 H Chloride 103 Carbon Dioxide 25 BUN 17 Creatinine 0.68 Glucose 251 H Calcium 8.6 - ABG Interpretation ABG results: PT/INR, D-dimer PT 14.0 Seconds (9.4-12.1) H 09/19/16 11:43 - VTE Documentation of Mechanical Device: Intermittent pneumatic compression device Consult Discharge Plan - Plan Referrals: Shira Del Castillo MD [Primary Care Provider] -
[2016-09-23] MEDS: Aspirin 81 MG TAB.CHEW PO SCH (15:11)
--- NOTE | 2016-09-23 17:56 | Anesthesia Evaluation Post Op ---
Date of Encounter: 09/23/16 Time of Encounter: 09:15 - Vital Signs Vital Signs: Vital Signs Temp Pulse Resp BP Pulse Ox 09/23/16 15:03 99.1 F 85 17 126/67 98 09/23/16 09:26 98.3 F 82 16 124/53 96 Intake and Output - Lungs Lungs: Clear Ascult./Percussion - Airway Airway: Non-obstructed - Cardiovascular Regular Rate - Mental Status Mental Status: Alert & Oriented, Answers Appropriately, Asleep with brisk response to light stimulation - Pain Pain Scale: 0 Pain Scale used: Numeric (1 - 10) - Nausea Vomiting Nausea Vomiting: Not Present - Hydration Hydration: NPO, Able to void - Discharge PostOp Status: Transfer Patient to floor Anes Supervising Prov Stmt: Pt seen/evaluated, VSS and pt has met criteria for discharge to floor. - MD Oli
[2016-09-23] MEDS: *HR* Morphine 2 MG/ML SYRINGE IVP PRN (20:24)
--- NOTE | 2016-09-23 20:39 | Operative Note ---
Date of procedure: 09/23/16 Pre-op diagnosis: Abscess left heel Post-op diagnosis: same Procedure: Incision and drainage of left heel abscess Implants: None Complications: None Anesthesia: ANASTASIA Surgeon: Michel Mansfield Estimated blood loss (cc): 5 Specimen: Cultures obtained Condition: stable Disposition: floor Procedure in Detail: The patient was placed in the supine position and after anesthesia the foot was localized. The foot was then scrubbed prepped and draped in the usual aseptic fashion. A timeout was performed. On the medial aspect of the left heel there is noted to be a new abscess that measured approximately 1 cm in diameter. After an incision was made on the abscess there is noted to be purulent drainage. The purulent drainage was cultured and nonviable necrotic tissue was debrided. Debridement was involving epidermis, subcutaneous, fascia. The debridement left a 1.5 cm skin deficit/wound on the medial aspect of the heel. The prior incision site was noted to communicate with the new site and any necrotic or nonviable tissue was debrided. The site was pulse irrigated. After adequate pulse irrigation a wound VAC was applied. The patient tolerated the procedure and anesthesia well was transported to the recovery room with vital signs stable and vascular status intact to both feet. Patient will be readmitted to [facility]. patient will continue IV antibiotics and will more than likely require a 6 week course of IV antibiotics due to the proximity of purulence to the bone.
[2016-09-23] MEDS ORDERED: Furosemide 20 MG/2 ML VIAL IVP ONE (23:26)
[2016-09-24] MEDS: Clindamycin 600 MG/50 ML 600 MG/50 ML IV.SOLN IVPB SCH ×3 (00:12→15:16)
[2016-09-24] MEDS: *HR* Morphine 2 MG/ML SYRINGE IVP PRN (02:14)
[2016-09-24 05:15] LABS: Hematocrit 30.2 % (35.3-44.9); Hemoglobin 9.5 g/dL (11.5-15.4); Mean Corpuscular HGB Conc 31.5 g/dL (31.6-35.5); Mean Corpuscular Hemoglobin 29.6 pg (28.0-33.3); Mean Corpuscular Volume 94.1 fL (83.0-100.0); Mean Platelet Volume 9.3 fL (9.4-12.4); Platelet Count 267 K/mcL (140-400); Red Blood Count 3.21 M/mcL (3.82-4.97); Red Cell Distribution Width 18.8 % (11.5-14.5)
[2016-09-24 05:16] LABS: Nucleated Red Blood Cells 0.6 /100 WBC (0)
[2016-09-24 05:29] LABS: BUN/Creatinine Ratio 23 (6-26); Blood Urea Nitrogen 14 mg/dL (7-20); Calcium 8.7 mg/dL (8.6-10.8); Carbon Dioxide 28 mEq/L (19-29); Chloride 104 mEq/L (98-109); Glucose 216 mg/dL (70-99); Osmolality,Calculated 295 (280-300); Potassium 4.3 mEq/L (3.5-4.5); Sodium 139 mEq/L (136-145); eGFR For African Americans > 60 (> 60); eGFR For Non-African Americans > 60 (> 60)
[2016-09-24 05:45] LABS: Basophils # 0.2 K/mcL (0.0-0.2); Eosinophils # 0.2 K/mcL (0.0-0.6); Large Platelets Present (Not Present); Neutrophils # 6.7 K/mcL (1.6-8.9); Platelet Estimate Normal (Normal)
[2016-09-24 05:46] LABS: Polychromasia 1+ (Not Present); Target Cells 1+ (Not Present)
[2016-09-24 05:47] LABS: Anisocytosis 1+ (Not Present)
[2016-09-24] MEDS: Insulin LISPRO 300 UNITS/3 ML VIAL SQ SCH ×4 (08:26→20:46)
[2016-09-24] MEDS: Aspirin 81 MG TAB.CHEW PO SCH (08:27)
[2016-09-24] MEDS: Neosporin OINT 15 GM TUBE TP SCH ×2 (08:28→20:45)
[2016-09-24] MEDS: Nystatin POWDER 30 GM BOTTLE TP SCH ×2 (08:28→20:46)
--- NOTE | 2016-09-24 09:34 | Podiatry Progress Note ---
Date of Encounter: 09/24/16 Time of Encounter: 08:30 - Assessment and Plan (1) Cellulitis in diabetic foot Current Visit: Yes Status: Acute 1. Wound vac intact to left foot, continuous suction at 125 mmhg. 25 mls of serosanguineous drainage observed to chamber. 2. Erythema and swelling to left heel, we will continue to monitor closely. 3. Wound cultures isolated Staph Aureus. Receiving IV Clindamycin. Wound cultures obtained on 09/23/16 and pending. WBC: 9.6 Temp: 98.7 Creat: 0.62. 4. Recommend 6 weeks of IV antibiotic therapy and wound vac changes every 72 hours. 5. transportation maintenance worker is coordinating discharge plan to an ECF. (2) Diabetes Current Visit: Yes Status: Acute Qualifiers: Diabetes mellitus type: type 2 Diabetes mellitus complication status: with diabetic arthropathy Diabetes mellitus complication detail: with other arthropathy Diabetes mellitus chcf insulin use: without termite exterminator use Qualified Code(s): E11.618 - Type 2 diabetes mellitus with other diabetic arthropathy (3) Morbid obesity Current Visit: Yes Status: Acute Qualifiers: Obesity type: unspecified obesity type Qualified Code(s): E66.01 - Morbid ( severe) obesity due to excess calories (4) Neuropathy Current Visit: Yes Status: Acute Subjective Principal diagnosis: infection foot Interval history: Patient is s/p Irrigation and debridement of with I &D left heel bone on and an I&D left heel abscess on 09/23/[address] Mansfield. Patient is lying in bed with a wound vac intact to left heel. She states her heel is painful and rates it at a 9 out of 10. She denies any fever, chills, calf pain, or cp. Objective - Vital Signs Vital Signs: Vital Signs Temp Pulse Resp BP Pulse Ox 09/24/16 06:58 98.7 F 84 16 122/57 98 09/24/16 03:34 98.0 F 84 16 114/53 95 09/24/16 00:55 98.5 F 81 17 126/68 99 09/23/16 19:38 98.9 F 94 18 115/60 91 L 09/23/16 15:03 99.1 F 85 17 126/67 98 Intake and Output 09/23/16 09/24/16 09/24/16 23:59 07:59 15:59 Intake Total 50 / 50 50 / 50 Output Total 1450 / 1450 Balance 50 / 50 -1400 / -1400 -10 Intake: IV Fluids 50 / 50 50 / 50 Cleocin 600 MG/50 ML 600 50 / 50 50 / 50 mg In 50 ml @ 50 mls/hr IVPB Q8HR ART Rx#: [id number] Output: Catheter 1450 / 1450 Wound Drainage Left Heel Other: # Voids 1 Weight 140.1 kg Blood Glucose* 290 200 Patient Weight 09/24/16 23:59 Weight 140.1 kg - Exam Exam: General appearance: alert awake oriented X 3. Calm and pleasant, no acute distress.. Vascular: Pedal pulses +1/4 DP/PT , No evidence of cyanosis, pallor or rubor, Edema graded at 1+/4, Skin Temperature warm, No calf pain with manual compression. capillary refill time is immediate to digits. Postop Exam: S/P Black wound vac sponge intact, connected to 125 mmhg continuous suction. 25 mls of serosanguineous drainage observed to chamber. Periwound erythema, with edema. No pus, no fluctuance. - Lab Result Diagrams: 09/24/16 05:06 09/24/16 05:06 Labs: Abnormal lab results RBC 3.21 M/mcL (3.82-4.97) L 09/24/16 05:06 Hgb 9.5 g/dL (11.5-15.4) L 09/24/16 05:06 Hct 30.2 % (35.3-44.9) L 09/24/16 05:06 MCHC 31.5 g/dL (31.6-35.5) L 09/24/16 05:06 RDW 18.8 % (11.5-14.5) H 09/24/16 05:06 MPV 9.3 fL (9.4-12.4) L 09/24/16 05:06 Immature Gran % 6.2 % (0-4) H 09/23/16 11:30 Band Neutrophils % 12.0 % (0-4) H 09/24/16 05:06 Metamyelocytes % 4.0 % (0) H 09/24/16 05:06 Myelocytes % 2.0 % (0) H 09/24/16 05:06 Nucleated RBCs/100 WBC 0.6 /100 WBC (0) H 09/24/16 05:06 Large Platelets Present (Not Present) A 09/24/16 05:06 Polychromasia 1+ (Not Present) A 09/24/16 05:06 Anisocytosis 1+ (Not Present) A 09/24/16 05:06 Target Cells 1+ (Not Present) A 09/24/16 05:06 ESR >= 130 mm/hr (0-15) H 09/19/16 10:21 PT 14.0 Seconds (9.4-12.1) H 09/19/16 11:43 Glucose 216 mg/dL (70-99) H 09/24/16 05:06 POC Glucose 252 (58-89) H 09/23/16 09:24 Phosphorus 2.1 mg/dL (2.3-4.7) L 09/19/16 11:43 Magnesium 1.5 mg/dL (1.6-2.6) L 09/19/16 11:43 Creatine Kinase 217 Units/L (29-168) H 09/19/16 10:21 Albumin 2.4 g/dL (3.5-5.0) L 09/19/16 11:43 Globulin 4.1 g/dL (2.4-3.5) H 09/19/16 11:43 Albumin/Globulin Ratio 0.6 (1.1-2.2) L 09/19/16 11:43 Urine Clarity Turbid (Clear) A 09/19/16 10:59 Urine Protein 100 mg/dL (Neg-Trace) H 09/19/16 10:59 Urine Glucose (UA) 500 mg/dL (Normal) H 09/19/16 10:59 Urine Blood Moderate (Negative) H 09/19/16 10:59 Urine Nitrite Positive (Negative) A 09/19/16 10:59 Ur Leukocyte Esterase Large (Negative) H 09/19/16 10:59 Urine Microscopic RBC 3-5 per hpf (0-3) H 09/19/16 10:59 Urine Microscopic WBC TNTC per hpf (0-3) H 09/19/16 10:59 Ur Squamous Epith Cells Many per lpf (None-Few) H 09/19/16 10:59 Urine Bacteria Many per hpf (None-Few) H 09/19/16 10:59 Microbiology, Last 48 Hours 09/23/16 09:22 Wound Culture - Preliminary Left Foot No growth. 09/19/16 18:54 Anaerobic Culture - Preliminary Left Foot At this time, no anaerobic growth is present. The culture will be finalized after 5 days of incubation. 09/19/16 18:54 Wound Culture - Final Left Foot Staphylococcus aureus - VTE Documentation of Mechanical Device: Intermittent pneumatic compression device Consult Discharge Plan - Plan Referrals: Shira Del Castillo MD [Primary Care Provider] -
--- NOTE | 2016-09-24 14:45 | Internal Med Progress Note ---
Date of Encounter: 09/24/16 Time of Encounter: 14:43 - Assessment and plan (1) Sepsis Current Visit: Yes Status: Acute Assessment and plan: Sepsis secondary to left necrotic heel ulcer with surrounding cellulitis, MRI ankle s/o findings with diffuse suncutaneous edema compatible with cellulitis vs lymphedema, early osteomyelitis could not be excluded. s/p debridement, noted new abscess yesterday, underwent repeat I and D with Dr. Choi today. wound care as per podiatry. has been started on clindamycin, wound culture positive for staph aureus. repeat wound cx prelim shows no growth. remains afebrile, leucocytosis has improved, will continue 6 weeks of IV antibiotics. Qualifiers: Sepsis type: sepsis due to unspecified organism Qualified Code(s): A41.9 - Sepsis, unspecified organism (2) Cellulitis in diabetic foot Current Visit: Yes Status: Acute Assessment and plan: s/p repeat irrigation and debridement of the left heel ulcer with dr. choi. plan as above (3) Diabetes Current Visit: Yes Status: Acute Assessment and plan: ll continue the lispro sliding scale for now. monitor accucjecks. Qualifiers: Diabetes mellitus type: type 2 Diabetes mellitus complication status: with diabetic arthropathy Diabetes mellitus complication detail: with other arthropathy Diabetes mellitus pressure supervisor insulin use: without half-way use Qualified Code(s): E11.618 - Type 2 diabetes mellitus with other diabetic arthropathy (4) Hypertension Current Visit: Yes Status: Acute Qualifiers: Hypertension type: essential hypertension Qualified Code(s): I10 - Essential (primary) hypertension (5) Morbid obesity Current Visit: Yes Status: Acute Qualifiers: Obesity type: unspecified obesity type Qualified Code(s): E66.01 - Morbid ( severe) obesity due to excess calories (6) UTI (urinary tract infection) Current Visit: Yes Status: Acute Assessment and plan: UA shows positive LE and nitrite however she has no symptoms. will not treat asymptomatic bacteriuria. Qualifiers: Urinary tract infection type: site unspecified Hematuria presence: without hematuria Qualified Code(s): N39.0 - Urinary tract infection, site not specified - Time Spent With Patient 25 - 35 minutes - Subjective Interval history: patient seen at the bedside, denies any complains today denies any burning micturition, or any urinary symptoms. s/p repeat Irrigation and debridement with incision and drainage of left heel for new abscess. new wound cx shows pre crane no growth. remains afebrile. being followed by podiatry, cx shows staph aureus, started on clindamycin. waiting for placement to ECF - Constitutional Vitals: Temp Pulse Resp BP Pulse Ox 98.3 F 80 18 156/67 98 09/24/16 11:03 09/24/16 11:03 09/24/16 11:03 09/24/16 11:03 09/24/16 11:03 General appearance: Present: A&O X 3, morbidly obese Exam: patient seen at the bedside,complains mild pain on the heel of the left heel. denies any burning micturition, or any urinary symptoms. s/p repeat Irrigation and debridement with incision and drainage of left heel for new abscess. new cx have been sent. remains afebrile. being followed by podiatry, cx shows staph aureus, started on clindamycin. Internal Medicine: Result - Labs CBC & Chem 7: 09/24/16 05:06 09/24/16 05:06 Labs: Short CBC 09/24/16 Range/Units 05:06 WBC 9.6 (4.3-11.1) K/mcL Hgb 9.5 L (11.5-15.4) g/dL Hct 30.2 L (35.3-44.9) % Plt Count 267 (140-400) K/mcL Neutrophils # 6.7 (1.6-8.9) K/mcL BMP 09/24/16 05:06 Sodium 139 Potassium 4.3 Chloride 104 Carbon Dioxide 28 BUN 14 Creatinine 0.62 Glucose 216 H Calcium 8.7 - ABG Interpretation ABG results: PT/INR, D-dimer PT 14.0 Seconds (9.4-12.1) H 09/19/16 11:43 - Impressions Impressions Chest X-Ray 09/23/16 18:39 IMPRESSION: Left PICC with tip at the mid SVC. No focal lung consolidation. Stable interstitial prominence suggesting mild pulmonary edema. D/ / 09/23/2016 20:14:37 Jean-Paul Pierce MD / [email or web address] Interpreting Provider: Jean-Paul Pierce MD - VTE Documentation of Mechanical Device: Intermittent pneumatic compression device Consult Discharge Plan - Plan Referrals: Shira Del Castillo MD [Primary Care Provider] -
[2016-09-24] MEDS: *HR* OxyCODONE Immed Rel 5 MG TABLET PO PRN (20:45)
[2016-09-24] MEDS: Albuterol 2.5 MG/3 ML NEBULIZER IH PRN (21:14)
[2016-09-25] MEDS: Clindamycin 600 MG/50 ML 600 MG/50 ML IV.SOLN IVPB SCH ×3 (00:25→16:47)
[2016-09-25] MEDS: *HR* Morphine 2 MG/ML SYRINGE IVP PRN (00:25)
[2016-09-25] MEDS: *HR* OxyCODONE Immed Rel 5 MG TABLET PO PRN ×2 (04:48→18:53)
[2016-09-25 05:34] LABS: Fibrinogen 679 mg/dL (169-393)
[2016-09-25 05:38] LABS: D-Dimer 2056 ng/mLFEU (0-500)
[2016-09-25] MEDS ORDERED: *HR* Enoxaparin 30 MG/0.3 ML SYRINGE SQ SCH (07:00)
[2016-09-25] MEDS: Insulin LISPRO 300 UNITS/3 ML VIAL SQ SCH ×3 (07:53→16:46)
[2016-09-25] MEDS: Aspirin 81 MG TAB.CHEW PO SCH (07:54)
[2016-09-25] MEDS: Neosporin OINT 15 GM TUBE TP SCH (07:55)
[2016-09-25] MEDS: Nystatin POWDER 30 GM BOTTLE TP SCH (07:55)
--- NOTE | 2016-09-25 12:00 | Podiatry Progress Note ---
Date of Encounter: 09/25/16 Time of Encounter: 11:30 - Assessment and Plan (1) Cellulitis in diabetic foot Current Visit: Yes Status: Acute Wound vac intact and running without issue- To be changed MWF- VAC settings to remain the same- black GranuFoam Continue antibiotic therapy and medical to manage sepsis - will be discharged to [facility] with IV antibiotic therapy Patient will likely need 6 weeks outpatient IV antibiotic therapy Non weight bearing to LLE at this time Call with any questions or concerns Please call office with any issues with surgical site or wound vac call office with any worsening of cellulitis or wound appearance or clinical signs of infection Will need to follow up in clinic in 1 week Subjective Principal diagnosis: infection foot Interval history: Patient underwent Irrigation and debridement with incision and drainage of left heel and bone biopsy per Sessions followed by a subsequent Incision and drainage of left heel abscess on 09/23/16. On arrival patient is resting comfortably. States pain is much improved today. 10/12 at this time. Dressing and wound vac is intact and running without issue. 100ml of bloody drainage noted to VAC. Patient noted to have PT today, documentation states she is doing well but with instability due to non weight bearing status to LLE. Patient denies any chills, n/v or flu like symptoms overnight. Patient denies any calf pain Objective - Vital Signs Vital Signs: Vital Signs Temp Pulse Resp BP Pulse Ox 09/25/16 10:36 98.4 F 79 16 104/59 99 09/25/16 06:32 98.6 F 84 16 119/66 98 09/25/16 03:50 97.4 F L 83 17 131/66 97 09/24/16 23:30 97.7 F 80 17 133/70 97 09/24/16 21:16 18 98 09/24/16 20:00 97.7 F 81 16 138/71 97 09/24/16 15:15 99.3 F 85 18 130/58 96 Intake and Output 09/24/16 09/25/16 09/25/16 23:59 07:59 15:59 Intake Total 520 / 520 800 / 800 170 / 170 Output Total 810 / 810 45 / 45 Balance -290 / -290 800 / 800 125 / 125 Intake: IV Fluids 50 / 50 50 / 50 50 / 50 Cleocin 600 MG/50 ML 600 50 / 50 50 / 50 50 / 50 mg In 50 ml @ 50 mls/hr IVPB Q8HR [facility] Rx#: [id number] Oral 470 / 470 750 / 750 120 / 120 Output: Urine 810 / 810 Wound Drainage 45 / 45 Left Heel 45 / 45 Other: Meal Dinner Breakfast Percent of Meal Consumed 75% 50% Blood Glucose* 217 221 240 - Exam Exam: General Examination: CONSTITUTIONAL: Alert, oriented, in no acute distress, non-toxic. EXTREMITIES: CFT 3 seconds all toes. Edema +1 and pedal pulses palpable. SKIN: Skin with decreased turgor, decreased subcutaneous tissue, skin thin and shiny with trophic changes associated with comorbidities as described in history.. NEUROLOGIC: Intact sensation to moderate touch, reports mild pain with palpation of surgical area Surgical site/Vac Site- Wound Vac sealed and intact to plantar aspect of left calcaneal area. Cellulitis remains but has regressed from previously marked line. Cellulitis extends to mid foot plantar aspect and along medial side of foot and ankle. Remains mildly warm to touch. Mild edema continues. No new areas of abscess or fluctuance noted with palpation or visible at this time. Drainage to VAC bloody in appearance. 100ml total at this time. No odor. No calf pain with palpation bilaterally. - Lab Result Diagrams: 09/24/16 05:06 09/24/16 05:06 Labs: Abnormal lab results RBC 3.21 M/mcL (3.82-4.97) L 09/24/16 05:06 Hgb 9.5 g/dL (11.5-15.4) L 09/24/16 05:06 Hct 30.2 % (35.3-44.9) L 09/24/16 05:06 MCHC 31.5 g/dL (31.6-35.5) L 09/24/16 05:06 RDW 18.8 % (11.5-14.5) H 09/24/16 05:06 MPV 9.3 fL (9.4-12.4) L 09/24/16 05:06 Immature Gran % 6.2 % (0-4) H 09/23/16 11:30 Band Neutrophils % 12.0 % (0-4) H 09/24/16 05:06 Metamyelocytes % 4.0 % (0) H 09/24/16 05:06 Myelocytes % 2.0 % (0) H 09/24/16 05:06 Nucleated RBCs/100 WBC 0.6 /100 WBC (0) H 09/24/16 05:06 Large Platelets Present (Not Present) A 09/24/16 05:06 Polychromasia 1+ (Not Present) A 09/24/16 05:06 Anisocytosis 1+ (Not Present) A 09/24/16 05:06 Target Cells 1+ (Not Present) A 09/24/16 05:06 ESR >= 130 mm/hr (0-15) H 09/19/16 10:21 PT 14.0 Seconds (9.4-12.1) H 09/19/16 11:43 Fibrinogen 679 mg/dL (169-393) H 09/25/16 05:17 D-Dimer 2056 ng/mLFEU (0-500) H 09/25/16 05:17 Glucose 216 mg/dL (70-99) H 09/24/16 05:06 POC Glucose 217 (58-89) H 09/24/16 20:31 Phosphorus 2.1 mg/dL (2.3-4.7) L 09/19/16 11:43 Magnesium 1.5 mg/dL (1.6-2.6) L 09/19/16 11:43 Creatine Kinase 217 Units/L (29-168) H 09/19/16 10:21 Albumin 2.4 g/dL (3.5-5.0) L 09/19/16 11:43 Globulin 4.1 g/dL (2.4-3.5) H 09/19/16 11:43 Albumin/Globulin Ratio 0.6 (1.1-2.2) L 09/19/16 11:43 Urine Clarity Turbid (Clear) A 09/19/16 10:59 Urine Protein 100 mg/dL (Neg-Trace) H 09/19/16 10:59 Urine Glucose (UA) 500 mg/dL (Normal) H 09/19/16 10:59 Urine Blood Moderate (Negative) H 09/19/16 10:59 Urine Nitrite Positive (Negative) A 09/19/16 10:59 Ur Leukocyte Esterase Large (Negative) H 09/19/16 10:59 Urine Microscopic RBC 3-5 per hpf (0-3) H 09/19/16 10:59 Urine Microscopic WBC TNTC per hpf (0-3) H 09/19/16 10:59 Ur Squamous Epith Cells Many per lpf (None-Few) H 09/19/16 10:59 Urine Bacteria Many per hpf (None-Few) H 09/19/16 10:59 Microbiology, Last 48 Hours 09/19/16 18:54 Wound Culture - Final Left Foot Staphylococcus aureus 09/19/16 18:54 Anaerobic Culture - Final Left Foot Anaerobic Gram Positive Cocci Anaerobic Gram Positive Cocci#2 09/23/16 09:22 Wound Culture - Final Left Foot Normal skin dmitriy. No apparent pathogens isolated. - VTE Documentation of Mechanical Device: Intermittent pneumatic compression device Consult Discharge Plan - Plan Referrals: Shira Del Castillo MD [Primary Care Provider] -
[2016-09-25 14:59] VITALS: BP 132/71
--- NOTE | 2016-09-25 16:15 | Discharge Summary ---
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 Qualified Code(s): E11.618 - Type 2 diabetes mellitus with other diabetic arthropathy (4) Hypertension Priority: Secondary Status: Acute Qualifiers: Hypertension type: essential hypertension Qualified Code(s): I10 - Essential (primary) hypertension (5) Morbid obesity Priority: Secondary Status: Acute Qualifiers: Obesity type: unspecified obesity type Qualified Code(s): E66.01 - Morbid ( severe) obesity due to excess calories (6) UTI (urinary tract infection) Priority: Secondary Status: Acute Qualifiers: Urinary tract infection type: site unspecified Hematuria presence: without hematuria Qualified Code(s): N39.0 - Urinary tract infection, site not specified - Discharge Medications Prescriptions: OxyCODONE Immed Rel [Roxicodone 5 MG] 10 mg PO Q6HR PRN #30 tablet PRN Reason: Severe Pain Clindamycin 600 MG/50 ML [Cleocin 600 MG/50 ML] 600 mg IV Q8H 35 Days Nystatin POWDER [Nystop] 1 appl TP BID 10 Days Home Medications: Acetaminophen [Tylenol Arthritis] 650 mg PO Q6H PRN 09/19/16 [History] Aspirin 81 mg PO DAILY 09/19/16 [History] Metformin HCl [Glucophage] 1,000 mg PO BID 09/19/16 [History] Oxybutynin Chloride [Ditropan Xl] 5 mg PO DAILY 09/19/16 [History] Pioglitazone HCl [Actos] 45 mg PO DAILY 09/19/16 [History] Simvastatin [Zocor] 40 mg PO HS 09/19/16 [History] Clindamycin 600 MG/50 ML [Cleocin 600 MG/50 ML] 600 mg IV Q8H 35 Days 09/25/16 [ Rx] Nystatin POWDER [Nystop] 1 appl TP BID 10 Days 09/25/16 [Rx] OxyCODONE Immed Rel [Roxicodone 5 MG] 10 mg PO Q6HR PRN #30 tablet 09/25/16 [Rx] Allergies/Adverse Reactions: Allergies Penicillins Adverse Reaction (Verified 09/19/16 11:57) Itching Date of admission: 09/19/16 12:06 Primary care physician: Shira Del Castillo MD Consults: 09/19/16 14:21 Consult to Pastoral Services [CONS] Routine Comment: 09/20/16 10:30 Consult to [employer] Space Salesperson [CONS] Routine Reason for SW Consult: discharge planning 09/20/16 14:34 Consult to PICC team [Consult to Invasive Line Access Team] [CONS] Routine Reason for Consult: IV medications on discharge Line Type: PICC 09/20/16 15:28 Consult to Invasive Line Access Team [CONS] Routine Reason for Consult: Picc Line Insertion Line Type: PICC 09/21/16 12:52 Consult to Occupational Therapy [CONS] Routine Comment: MAIRA GREY Consult to Physical Therapy [CONS] Routine Comment: MAIRA GREY 09/24/16 04:29 Consult to Speech Therapy [CONS] Routine Comment: Evaluate, develop and implement POC Reason for Consult: Patient was coughing as she was drinking clears when she came back from surgery on the . Call Completed: No Discharging clinician: Bhanu Dyer Anticipated date of discharge: 09/25/16 - Patient Status Disposition: Transfer Inpatient Rehab Fac Condition: Serious Functional capacity at discharge: uses cane/walker Overall status at discharge: patient is progressing back to baseline - Discharge Instructions Follow Up With: Shira Del Castillo MD [Primary Care Provider] - - Diet and Activity Activity: as per physical therapy Diet: advance to your usual diet Interval History: Ms. Mendoza is a 76 year old female with a past medical history of diabetes type 2 not insulin-dependent, MRSA in his toes in the past, hypertension, comes to the emergency room complaining of 3 days of progressive weakness, she fell and hit her face. CT scan of the head does not show any intracranial hemorrhage. She has been more confused and complaining of progressive worsening pain on her left ankle and heel. There is an ulcer about 2 cm in diameter that has erythema in the surrounding area that has been getting worse. An x-ray of the ankle shows subcutaneous gas in the plantar area with no evidence of osteomyelitis. Dr. Adler was contacted by the emergency room physician Her white blood cell count is 15.9, ESR is 130, heart rate is 108. Also she denies any dysuria but her urinalysis shows positive nitrites and too many neutrophils to count. Feels very weak, denies any chest pain or other complaints. No sick contacts. Hospital course: she was admtted for Sepsis secondary to left necrotic heel ulcer with surrounding cellulitis, consider possible gangrene due to presence of gas, possible osteomyelitis (History of MRSA), possible UTI MRI ankle s/o findings with diffuse suncutaneous edema compatible with cellulitis vs lymphedema, early osteomyelitis could not be excluded, however as per the operating note, No signs of osteomyelitis after the debridement. she was started on meropenem and vancomycin, clindamycin Due to the subcutaneous gas in the heel immediate debridement Irrigation and debridement with incision and drainage of left heel and bone biopsy. she remianed hemodynamically stable, wound care was done by podiatry. cx from the wound and the bone biopsy grew staph aureus, which is clifford sensitive. IT was noted taht she had a new abscess and underwent repeat I and D with Dr. Mansfield. repeat wound cx showed no growth and she remained afebrile with no leucocytosis. Patient is being discharged in stable condition to [facility] to complete 6 weeks of IV antibiotics. she will follow up with podiatry as OP. Time spent discussing smoking cessation with patient: more than 10 minutes - Time Spent with Patient Total time spent providing and/or coordinating discharge services: Greater than 30 minutes - Constitutional Vitals: Temp Pulse Resp BP Pulse Ox 99.1 F 76 16 132/71 94 L 09/25/16 14:58 09/25/16 14:58 09/25/16 14:58 09/25/16 14:58 09/25/16 14:58 General appearance: Present: A&O X 3, morbidly obese Exam: neck- supple chest- b/l clear, no added sounds CVs-s1 and s2, no m/r/g abd-soft, non tender, bs are present ext- no edema - VTE Documentation of Mechanical Device: Intermittent pneumatic compression device
--- NOTE | 2016-09-25 16:21 | Physician Discharge Referral ---
ExtendedCare Referral Info Transfer To: f Provider in Charge: debbie sal Institutional Level of Care: Intermediate - MR - Diagnosis (1) Sepsis Status: Acute (2) Cellulitis in diabetic foot Status: Acute (3) Diabetes Status: Acute (4) Hypertension Status: Acute (5) Morbid obesity Status: Acute (6) UTI (urinary tract infection) Status: Acute - Transfer Medications Prescriptions: OxyCODONE Immed Rel [Roxicodone 5 MG] 10 mg PO Q6HR PRN #30 tablet PRN Reason: Severe Pain Clindamycin 600 MG/50 ML [Cleocin 600 MG/50 ML] 600 mg IV Q8H 35 Days Nystatin POWDER [Nystop] 1 appl TP BID 10 Days Home Medications: Acetaminophen [Tylenol Arthritis] 650 mg PO Q6H PRN 09/19/16 [History] Aspirin 81 mg PO DAILY 09/19/16 [History] Metformin HCl [Glucophage] 1,000 mg PO BID 09/19/16 [History] Oxybutynin Chloride [Ditropan Xl] 5 mg PO DAILY 09/19/16 [History] Pioglitazone HCl [Actos] 45 mg PO DAILY 09/19/16 [History] Simvastatin [Zocor] 40 mg PO HS 09/19/16 [History] Clindamycin 600 MG/50 ML [Cleocin 600 MG/50 ML] 600 mg IV Q8H 35 Days 09/25/16 [ Rx] Nystatin POWDER [Nystop] 1 appl TP BID 10 Days 09/25/16 [Rx] OxyCODONE Immed Rel [Roxicodone 5 MG] 10 mg PO Q6HR PRN #30 tablet 09/25/16 [Rx] Allergies/Adverse Reactions: Allergies Penicillins Adverse Reaction (Verified 09/19/16 11:57) Itching - Respiratory Orders Oxygen / L per min (2) Smoking Cessation: Smoking cessation has been advised. For more information, call the [employer] Tobacco Quit Line at 2-792-OGRN-NOW. - Advance Directives Code Status: Full Code - Mobility Orders Chair - Rehabiliation Orders Rehab Potential: Fair Rehab Orders: Evaluation for Physical Therapy, Evaluation for Occupational Therapy - Diet Orders Regular CERTIFICATION: I certify that the transfer of the above named patient to an Extended Care Facility is necessary for the continuing treatment of the diagnosis listed. The above information is true and accurate reflection of patient's current condition. Confidential - Redisclosure prohibited without a patient's written consent.
[2016-09-25] MEDS ORDERED: Aminoglycoside Consult 1 EACH MC ONE (19:29)
[2016-09-27 07:53] LABS: Antithrombin III, Activity 85 % (76-128); Homocysteine 70 umol/L (<=10); Protein S Antigen, Total 144 % (63-126)
[2016-09-27 18:00] LABS: APTT (LE Anticoag) 45 sec (32-48); Diluted Russell Viper Venom 40 sec (33-44); PT (LE-Anticoag) 14.3 sec (12.0-15.5)
== END 2016-09-25 19:30 | DRG 854 ==
LOC: 3NENU 09:12 → EMEROO 09:12 → SUATTDRO 12:06 → 3NENU 13:19
PROVIDERS: ADMIT Internal Medicine; ATTEND Internal Medicine Endocrinology, Diabetes & Metabolism